=== PATIENT | female | born 1995 | race Caucasian/White ===

== ENCOUNTER → 2021-03-25 00:19 | Outpatient (CLI) | payer OTHER, SELFPAY ==
[2021-03-25 20:23] LABS: SARS-CoV-2 RNA PCR Negative
[2021-03-26 23:31] LABS: Influenza A QL RT-PCR Negative (Negative); Influenza B QL RT-PCR Negative (Negative)
== END ==
PROVIDERS: PCP Internal Medicine; Visit Provider Internal Medicine
DX: R68.89 Other general symptoms and signs (principal); Z20.822 Contact with and (suspected) exposure to COVID-19
CPT/HCPCS: 87502; C9803; U0003; U0005

== ENCOUNTER 2021-03-25 10:07 | Emergency (ER) | payer OTHER, SELFPAY ==
--- NOTE | ~2021-03-25 | XR_ITS ---
XR chest 2V DATE: 03/25/2021 11:57 INDICATION: Cough for 2 weeks. Former smoker. TECHNIQUE: AP and lateral views COMPARISON: Two-view chest on April 16, 2004 FINDINGS: Normal heart size. No hilar or mediastinal enlargement. The lungs are normally inflated and clear of infiltrate or consolidation. No pleural effusion or pulmonary vascular congestion or pneumo thorax. IMPRESSION: Negative Reviewed, dictated and finalized at location A. CTURAL STEEL ERECTION SUPERVISOR IMPRESSION: Negative
[2021-03-25 10:26] VITALS: BP 116/83; PULSE 93; RESP 18; TEMP 36.9; O2SAT 97
--- NOTE | 2021-03-25 11:56 | ED.GENADULT ---
HPI - General Adult General Chief complaint: Upper Respiratory Infection Stated complaint: facial swelling Time Seen by Provider: 03/25/21 10:24 Source: patient Mode of arrival: ambulatory Limitations: no limitations History of Present Illness HPI narrative: Patient presents for evaluation of sinus symptoms for the last 2 to 3 weeks. She reports sinus congestion, green drainage, productive cough of green sputum, sore throat, bilateral otalgia without hearing loss or tinnitus. No fever, chills, nausea, vomiting, chest pain or SOB. No personal hx of COVID. She opted not to receive COVID vaccination. No recent sick contacts to her knowledge. She went to a [employer] drive thru earlier today but has not received her results yet. She is not taking any medications to assist with her symptoms. She smokes marijuana but does not smoke tobacco. No additional complaints or concerns. Related Data Home Medications Medication Instructions Recorded Confirmed ergocalciferol (vitamin D2) 1,250 1,250 mcg PO WEEKLY 10/27/20 10/27/20 mcg (50,000 unit) capsule fluoxetine 20 mg capsule 20 mg PO DAILY 10/27/20 10/27/20 prazosin 1 mg capsule 1 mg PO QHS 10/27/20 10/27/20 trazodone 100 mg tablet 100 mg PO QHS PRN 10/27/20 10/27/20 trazodone 50 mg tablet 50 mg PO QHS PRN 10/27/20 10/27/20 Allergies Allergy/AdvReac Type Severity Reaction Status Date / Time diphtheria,pertussis Allergy Unknown Unknown Verified 10/27/20 08:08 (acellular),te duloxetine Allergy Unknown Unknown Verified 10/27/20 08:08 [facility] Past Medical History Medical History (Updated 03/25/21 @ 13:06 by Wyatt Baird, SABRINA, BC) History of traumatic brain injury Surgical History Surgical History History of tonsillectomy History of tympanostomy tube placement Hx of craniotomy 2020 Family History Family History Father Hypertension Mother Hypertension Patient's mother is in good health Family history of malignant neoplasm of breast in first degree relative Sibling Patient's brother is in good health Social History Social History Smoking packs per day: 1 Smoking cigarettes per day: 20.0 Years smoked: 5 Smoking pack-years: 5.00 Smoking status: Former smoker Second hand tobacco smoke exposure: Yes Alcohol intake: current Alcohol use details: social Substance use: current Substance use type: marijuana Living arrangements: with family Gender identity (if verbalized by the patient): Female Spiritual care concerns: No Exam Narrative: GENERAL: Well-appearing, well-nourished, and in no acute distress. HEAD: Normocephalic, atraumatic. EYES: PERRLA and EOMI. ENT: Nares clear, no rhinorrhea or epistaxis. Mucous membranes moist. Oropharynx without tonsillar hypertrophy exudate or other lesions. Bilateral TMs pearly jerome nonbulging NECK: Supple. No adenopathy or masses. No carotid bruits or JVD CHEST: Clear to auscultation. No respiratory distress. No wheezes rales or rhonchi HEART: Regular rate and rhythm. No murmur heard. Normal peripheral pulses. ABDOMEN: Soft, nontender, nondistended, normal active bowel sounds. EXTREMITIES: Normal range of motion. No edema. SKIN: There is erythema overlying right maxillary region. Warm, dry, no rash. NEURO: No focal deficits. Alert and oriented x3. PSYCH: Normal mood and affect. Course Course Emergency Course: This is a 26-year-old female who presented with complaints of sinus congestion and mucopurulent discharge with associated cough for the last 2 to 3 weeks. Strep, influenza, COVID were all negative. Chest x-ray was negative. Based on duration of time for which she has experienced symptoms, she meets criteria for ABRS. We will treat with doxycycline and Mucinex DM. She is not hypoxic. She was advised to f
[2021-03-25 12:48] LABS: EDCOVIDSCREEN Negative (Negative)
== END 2021-03-25 13:34 | disposition home or self-care (01) ==
PROVIDERS: Emergency Provider Nurse Practitioner; PCP Internal Medicine
DX: J01.90 Acute sinusitis, unspecified (principal); B96.89 Other specified bacterial agents as the cause of diseases classified elsewhere; Z20.822 Contact with and (suspected) exposure to COVID-19; Z87.820 Personal history of traumatic brain injury; Z87.891 Personal history of nicotine dependence
CPT/HCPCS: 36415; 71046; 87081; 87426; 87502; 87804; 87880; 99283; C9803; U0003; U0005

== ENCOUNTER 2021-03-29 11:00 | Outpatient (RCR) | payer OTHER, SELFPAY ==
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
--- NOTE | 2021-02-16 10:33 | PCPTNOTE ---
Patient's father called & cancelled scheduled appointment this date due to being unable to make it.
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
--- NOTE | 2021-03-09 09:39 | PCOTNOTE ---
Patient did not show up for scheduled appointment this date.
--- NOTE | 2021-03-15 08:48 | PCOTNOTE ---
Patient called & cancelled scheduled appointment this date due to not feeling well.
--- NOTE | 2021-03-29 11:12 | OTOPEVAL ---
OCCUPATIONAL THERAPY RE-EVALUATION AND DISCHARGE SUMMARY 03/29/21 Erica presents for OT re-evaluation following 5 weeks of therapy. Progress noted in functional strength of the shoulder and certified legal secretary specialist as well as improved ROM in the elbow, forearm, and wrist. She is now using the left hand to hold objects while opening them with the right hand. She is currently independent with HEP for all joints of the left UE. At this time she has been unable to be progressed to more resistive exercises due to weakness - plan to have her continue her active ROM HEP, moving against gravity. Recommended to the patient and her dad that she completes UE exercises daily with the goal of returning to have her HEP progressed after she recovers from her knee surgery that is scheduled for next week. Thank you for referring Erica Waterman to [facility].? Please review, sign, date and return this D/C Note PEGGY. I agree with and certify that the following plan of care is medically necessary. Referring Physician Date Referring Provider: Nayana Adams, ARTUROC *OT Outpatient Evaluation Start: 02/22/21 09:38 Diagnosis TBI Onset 03/23 Subjective Information Erica reports that her Query Text:As Reported By Patient/ shoulder pain continues to be Family pretty severe, but does note that her shoulder has gotten stronger and she has more movement. Erica and dad report that she has been using her left hand to hold water bottles while she opens them with the right hand. Dad states he has not been having to help her open drinks and containers. Pain Assessment Timing of Pain Assessment Timing of Pain Assessment Assessment Pain Scale Pain Scale Used Numeric (1 - 10) Self Report Pain Assessment Left Arm(s) Reported Pain Level 6 Lowest Pain Intensity 4 Greatest Pain Intensity 8 Pain Score Pain Score 6: Self Report Interventions Used Interventions Used By Clinicians Exercise,Rest Upper Extremity Range of Motion Scapular/ Shoulder Range of Motion Left Scapular/Shoulder Range of Motion Shoulder continues to be Comments subluxed 1 finger width. Passive flexion and abduction is WFL. Very minimal and inconsistent active motion. With cues to attend to the arm she has some active trace motion. Elbow/Forearm Range of Motion Left Elbow/Forearm Range of Motion Comments Active flexion is WNL Active extension improved to -30* Pronation improved to normal limits
--- NOTE | 2021-04-04 11:39 | PCPTNOTE ---
Patient did not show up for scheduled appointment this date. Called & she stated she wasn't able to get a ride.
--- NOTE | 2021-04-24 08:35 | PCPTNOTE ---
Admitting Provider: Attending Provider: Nayana Adams, FURNACE CLERK-C Patient:Erica Waterman Date of :1995 Physical Therapy Discharge Note Patient has not returned for any further treatments since 03/29/2021, therefore she will be discharged at this time. She was scheduled for knee surgery 04/11/21. Patient?s initial visit was on 02/02/2021 she had a total of 13 visits. The goals have been partially met at this time. Thank you for referring this patient to [facility]. Please review, sign, date and return this discharge summary PEGGY. I have been updated about the patient's current status and I agree with discharge from the above service at this time. Referring Physician Date
== END 2021-04-24 11:34 | disposition home or self-care (01) ==
LOC: ANHPT 11:00
PROVIDERS: PCP Internal Medicine; Visit Provider Nurse Practitioner
DX: M79.10 Myalgia, unspecified site (principal)
CPT/HCPCS: 97014; 97110; 97112; 97163; 97166; 97530; 97535; 97542; G0283

== ENCOUNTER 2021-11-01 13:15 | Outpatient (RCR) | payer OTHER, SELFPAY ==
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
== END 2021-11-23 16:01 | disposition home or self-care (01) ==
LOC: ANHGOSHPT 13:15
PROVIDERS: PCP Internal Medicine; Visit Provider Internal Medicine
DX: M79.10 Myalgia, unspecified site (principal)
CPT/HCPCS: 97110; 97112; 97163; 97530

== ENCOUNTER 2022-02-05 00:26 | Day surgery (SDC) | payer OTHER, SELFPAY ==
[2022-01-23 13:11] VITALS: BMI 25.8
--- NOTE | 2022-01-23 13:22 | PC.NURSE ---
Report to the Outpatient Waiting Room, entrance under the green pavilion located off [facility], at time _1pm_ on date _[id number]_. Planned Procedure Time: _3pm_. Time changes happen often and if your time is changed the preop area will call you the afternoon before. - You and your visitor will be asked to self-screen and do not enter if you have any COVID symptoms. - Only one visitor is requested with a max of two and NO children visitors are allowed at this time. - The patient visitor may be requested to leave or wait in car when not with patient due to distancing restrictions. - A mask is optional within the hospital. Patients may have clear liquids (water, carbonated beverages, clear teas, apple juice) until 3 hours prior to surgery with a maximum of 20 ounces. - No food from midnight until time of surgery Take the following medications with a SIP of water the morning of surgery: __Buspirone, Fluoxetine, Gabapentin, Dantrolene and Lamotrigine.____ Medications to discontinue per physician ___None Date to take last dose Please no make-up, nail telugu, hairspray, perfume, deodorant, or body powder the day of surgery. No jewelry (including any body piercings) or valuables the day of surgery, leave them at home. Please take a shower or bath the night before, or the morning of, surgery with an antibacterial soap. Wear comfortable, loose fitting clothing. - Jewelry must be removed prior to entering the operating room. Rings and piercings that are not removed may be cut off. - The hospital will not accept responsibility for valuables. - Please leave all valuables, including medications, at home the day of surgery. If you are going home after surgery, a licensed telephone directory distributor driver must drive you home. - NO public transportation without another adult if you receive anesthesia. - We recommend that an adult stay with you for 24 hours following discharge. - We also recommend that you do not drive, make important decision, drink alcoholic beverages, or take any drugs that were not prescribed by your health care provider for at least 24 hours after your discharge time. Follow any additional instructions given to you from your surgeon. If you or anyone in your household have experienced Covid symptoms in the past week, please notify your surgeon or the nurse liaison at the phone number below for possible testing. Telephone instructions given to __Patient and her dad___and asked if any additional questions and then verbalized understanding. Patient advised to call surgeon office or pre surgery nurse liaison [phone] if any additional questions.
[2022-02-05] MEDS: LACTATED RINGERS 1,000 ML 30 ML IV CONT (14:00)
--- NOTE | 2022-02-05 14:03 | WPDANESEPPF ---
Anes - Initial Pre Proc Eval Procedure: Operation Date: 02/05/22 15:00 Proposed Procedures p Excision Left Axiilary Hidradenitis - Tristian Page DO Date/Time: 02/05/22 14:03 Surgeon: Tristian Page DO Pre Op Diagnosis: left axillary hidradenitis Patient Data Age: 27 Gender: F Height: 1.63 m Weight: 68.2 kg Allergies Allergy/AdvReac Type Severity Reaction Status Date / Time diphtheria,pertussis Allergy Unknown Hives Verified 01/23/22 13:07 (acellular),te duloxetine [From Cymbalta] AdvReac Other Verified 01/23/22 13:07 Home Medications Medication Instructions Recorded Confirmed Type prazosin 1 mg capsule 1 mg PO QHS 10/27/20 01/23/22 History trazodone 100 mg tablet 300 mg PO QHS 10/27/20 01/23/22 History gabapentin 300 mg capsule 300 mg PO TID #270 caps 05/26/21 01/23/22 Rx fluoxetine 20 mg capsule 60 mg PO DAILY 08/10/21 01/23/22 History naproxen sodium 550 mg tablet 550 mg PO Q12H PRN pain #60 tabs 08/10/21 01/23/22 Rx lamotrigine 25 mg tablet 75 mg PO DAILY 08/22/21 01/23/22 History buspirone 15 mg tablet 15 mg PO BID 08/29/21 01/23/22 History hydroxyzine HCl 25 mg tablet 25 mg PO TID PRN itching #30 tabs 10/30/21 01/23/22 Rx sumatriptan succinate 50 mg tablet See Rx Instructions PO .COMPLEX 11/03/21 01/23/22 Rx (Imitrex) #30 tabs dantrolene 25 mg capsule 25 mg PO TID #90 caps 12/12/21 01/23/22 Rx ondansetron 4 mg disintegrating 4 mg PO Q8H PRN nausea and 01/08/22 01/23/22 Rx tablet vomiting #45 tabs medroxyprogesterone 150 mg/mL 150 mg IM [id number] #1 mL 01/19/22 01/23/22 Rx intramuscular syringe (Depo-Provera) Patient hx anesthesia problems: none Family hx anesthesia problems: none Results Review: All pre-operative results and documents have been reviewed as part of the pre-operative evaluation. [facility] Past Medical History Medical History Abnormal Pap smear of cervix 01/27/2018 Hgsil +hpv; 03/28/2020 Hgsil +hpv Anxiety Depression History of blood transfusion History of traumatic brain injury HPV in female Initiation of Depo Provera Irregular menstrual cycle Seizure Surgical History Surgical History H/O LEEP 05/05/20 History of colposcopy with cervical biopsy 03/12/18 LGSIL SAMANTHA I History of incision and drainage L and R Axillary abscess I&D on 10/10/21 History of surgery on lower extremity April 06, 2021 History of tonsillectomy History of tympanostomy tube placement x6 Hx of craniotomy 2019 Total knee replacement status Family History Family History Father Hypertension Mother Hypertension Patient's mother is in good health Family history of malignant neoplasm of breast in first degree relative Sibling Patient's brother is in good health Grandparent Lung cancer maternal grandmother Other Cancer Diabetes mellitus Heart disease Social History Social History Smoking packs per day: 1 Smoking cigarettes per day: 20.0 Years smoked: 17 Smoking pack-years: 17.00 Smoking status: Former smoker Tobacco type: cigarettes Second hand tobacco smoke exposure: Yes Alcohol intake: never Alcohol use details: social every once in a while Substance use: current Substance use type: marijuana Other substance usage details: daily for pain and anxiety. Living arrangements: with family Gender identity (if verbalized by the patient): Female Spiritual care concerns: No Anes - Eval Final PreProcedure Day of Procedure 02/05/22 14:03 Patient weight: overweight Heart: regular rate and rhythm Lungs: decreased breath sounds Airway: Mallampati scale class III Neurological: other (alert) Last oral intake: >/= 8 hours ASA classification: III Emergent: no Anesthetic plan: proceed Anest
--- NOTE | 2022-02-05 14:03 | WPDHPUPDATE1 ---
History and Physical Update Update Date/Time: 02/05/22 14:03 History and Physical has been reviewed, including an updated exam of the patient. There are NO changes in the patient's condition. Risks, benefits, and alternatives have been discussed and questions answered. Patient agrees to proceed with procedure.
[2022-02-05 14:11] VITALS: BP 106/73; PULSE 83; RESP 14; TEMP 36.4; O2SAT 97
[2022-02-05] MEDS: fentaNYL CITRATE INJ (*CRX) 100 MCG/2 ML VIAL 50 MCG IV PUSH (14:15)
[2022-02-05] MEDS: ceFAZolin 2 GM/D5W 50 ML 2 GM/50 ML BAG IVPB (14:26)
[2022-02-05] MEDS: LIDO 1%/EPINEPHRINE/PF 1:200,000 30 ML VIAL 20 ML XX (14:43)
[2022-02-05] MEDS: BACITRACIN OINTMENT 15 GM TUBE 1 APPLIC TOPICAL (15:06)
[2022-02-05 15:15] VITALS: BP 120/94; PULSE 93; RESP 15; O2SAT 95
--- NOTE | 2022-02-05 15:19 | P.OP_ITS ---
Procedure Note - Detailed Date of Procedure 02/05/22 Pre-op Diagnosis left axillary hidradenitis Post-op Diagnosis Same Procedure Performed Excision of left axillary hidradenitis with simple repair Surgeon Tristian Page, DO Anesthesia MAC and Local (1% lidocaine with epinephrine) Indications This is a 27-year-old woman who presented with recurrent left axillary skin infections. Over the past several months she has had multiple infections requiring either incision and drainage or oral antibiotics. She has several sinus tracts along the inner part of the left axilla that continued to become reinfected. Discussions were made with the patient about treatment options and decision was made to proceed with excision of left axillary hidradenitis. Findings Excision of left axillary hidradenitis was performed. There were multiple sinus tracts along the left axilla and there was some chronic induration. The affected area measured about 11 cm long by 3 cm wide. Along the more posterior part of the area there did appear to be some purulence fluid and recurrent abscess. A wide enough incision was made around this area and the skin and underlying subcutaneous tissue was excised completely and sent to the lab for pathology. The wound was then irrigated with sterile saline and closed using 3- 0 nylon vertical mattress interrupted sutures. Description of Procedure Procedure as well as risks, benefits, and alternatives were discussed with the patient. Written consent was obtained and placed in chart prior to procedure. Patient was brought back to surgical suite. She was placed in supine position on the operating table. Time-out was done to confirm patient and procedure. IV sedation was then administered by the anesthesia department. Her left axillary region was prepped and draped in sterile fashion using Betadine prep. 1% lidocaine with epinephrine was infiltrated locally around the affected region. An 11 cm x 3 cm elliptical incision was then made using a 15 blade scalpel. Electrocautery was then used for hemostasis and for dissection of the skin free from the subcutaneous tissue. The skin and involved subcutaneous tissue was completely excised and sent to the lab for pathology. There was some purulence drainage from the more posterior portion of the involved skin. The wound bed was irrigated with sterile saline. No other bleeding or abnormalities were noted. The skin edges were then undermined slightly using electrocautery to allow for adequate approximation of the skin without tension. The skin edges were then reapproximated using 3-0 nylon vertical mattress interrupted sutures. Bacitracin ointment was then applied followed by 4 x 4 gauze and Medipore tape. Patient was then awakened from anesthesia and transferred to recovery. Estimated Blood Loss 10 Pathology Yes (Left axillary hidradenitis) Complications No immediate complications Condition Stable Disposition Same day [facility] Billing Surgery - Charge Forward: Surgery Billing
[2022-02-05 15:45] VITALS: BP 116/64; PULSE 76; RESP 15; O2SAT 96
[2022-02-05 16:15] VITALS: BP 112/67; PULSE 76; RESP 15
[2022-02-05] MEDS: oxyCODONE HCL (*CRX) 5 MG TAB IR PO (16:17)
[2022-02-05 16:30] VITALS: BP 114/79; PULSE 80; RESP 16
== END 2022-02-05 16:40 | disposition home or self-care (01) ==
PROVIDERS: PCP Internal Medicine; Visit Provider Surgery
PROC: (CPT 11450; principal; 2022-02-05 15:00)
DX: L73.2 Hidradenitis suppurativa (principal); F32.A Depression, unspecified; F41.9 Anxiety disorder, unspecified; Z87.891 Personal history of nicotine dependence; F12.90 Cannabis use, unspecified, uncomplicated
CPT/HCPCS: 11450; 88304; A9270; J0690; J2250; J2704; J3010; J7120

== ENCOUNTER 2022-04-05 14:15 | Outpatient (RCR) | payer OTHER, SELFPAY ==
[2022-01-18 10:32] VITALS: BP_SYST 90
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
--- NOTE | 2022-01-18 17:08 | PTOPEVAL1 ---
Assessment and note entered by Ilir Barrow, PT Evaluation Information Assessment Status Evaluation Diagnosis L foot drop Subjective Information Patient coming in for according to patient general strengthening, aquatic therapy, and to get back to walking. She has been doing exercises in a family member's pool and reports she has been making a lot of improvement that. Reported Pain Level Pain Score 5,5: Self Report Pain Score 0: Self Report Pain Score 6: Self Report Assessment PT Clinical Summary Erica is a 27 year old female coming into the clinic for general strengthening to help improve her functional mobility and hopefully get to walking. She demonstrates weakness in JULIAN LE with the L ankle being worse. The patient has a PMH of a TBI and has been doing therapy before. She has a caregiver that will help her with her exercises at home. I believe skilled physical therapy will benefit the patient get stronger in her legs which will improve her functional mobility with transfers, bed mobility, and potentially walking. Plan of Care Interventions Aquatic Therapy,Electrical Stimulation,Gait Training,Hot Pack/Cold Pack,Manual Therapy,Neuro Re-education,Patient/Caregiver Education,Therapeutic Activities,Therapeutic Exercise,Ultrasound, Wheelchair Training PT Services Indicated Yes Treatment Frequency and 1-2x/wk Duration These treatments will address the objective and functional deficits as defined above. The patient will be advanced safely and appropriately in order for the patient to progress towards his/her prior level of function. Additional exercises will be introduced and as well as a comprehensive home exercise program upon discharge, if needed, ?to ensure carryover of functional gains achieved in the clinic. This treatment plan has been reviewed and agreement upon by the patient.
--- NOTE | 2022-01-24 10:13 | PCPTNOTE ---
Patient called & cancelled scheduled appointment this date due to not having power.
--- NOTE | 2022-01-31 11:12 | PCPTNOTE ---
Patient called & cancelled scheduled appointment this date due to not feeling well.
[2022-02-15 13:01] VITALS: BP_SYST 90
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
--- NOTE | 2022-02-15 14:23 | PTOPPROG ---
Assessment and note entered by Gloria Simpson, PT Evaluation Information Assessment Status Progress Diagnosis L foot drop Subjective Information pt reports she has been doing her leg exercises at home; wants to continue therapy and get stronger, to be able to walk again. Assessment PT Clinical Summary Erica has received 4 PT sessions. She is also receiving OT treatment. She has had surgical removal of L axillary nodes/cyst and pain in L shoulder limited use of L arm and pain in R knee. With the reevaluation, she requires max assist for supine> sit transfer, sit>stand transfer and standing with max assist in parallel bars. She has weakness of R & L hip and knee, with tone in L LE. Skilled PT services are to continue to increase her mobility, transfer skills and LE strength, to improve her mobility and decrease care and assist required by her dad and caregivers. Plan of Care Interventions Gait Training,Neuro Re-education,Patient/Caregiver Education,Therapeutic Activities,Therapeutic Exercise,Wheelchair Training PT Services Indicated Yes Treatment Frequency and 1-2x/wk for 5 weeks Duration These treatments will address the objective and functional deficits as defined above. The patient will be advanced safely and appropriately in order for the patient to progress towards his/her prior level of function. Additional exercises will be introduced and as well as a comprehensive home exercise program upon discharge, if needed, ?to ensure carryover of functional gains achieved in the clinic. This treatment plan has been reviewed and agreement upon by the patient.
[2022-03-22 14:15] VITALS: BP_SYST 90
--- NOTE | 2022-03-22 15:18 | OTOPPROG ---
Assessment and note entered by German Cortez, SANDIP/Jose Alberto, CHT Evaluation Information Assessment Status Progress Diagnosis TBI, 2019 Subjective Information Patient reports she has been able to open her own bottles of water and cut up her own food. She reports constant left shoulder pain, reporting 6-7 /10 on a regular basis. She states the subluxation feels worse and it feels like her arm is falling out of the socket . Assessment OT Clinical Summary Patient presents for OT re-evaluation. Progress noted in gross elbow and wrist strength, which has facilitated improved functional arm use for ADL tasks such as holding and opening a water bottle as well as utensils to cut food. Continued skilled OT indicated to progress her HEP, continued strengthening and functional therapeutic exercises , and shoulder positioning education to reduce pain. Plan of Care Interventions Therapeutic Exercise,Manual Therapy,Neuro Re- education,Therapeutic Activities,Hot Pack/Cold Pack,Electrical Stimulation,Self-Care/Home Management OT Services Indicated Yes Treatment Frequency and 1x/week for 5 weeks Duration These treatments will address the objective and functional deficits as defined above. The patient will be advanced safely and appropriately in order for the patient to progress towards his/her prior level of function. Additional exercises will be introduced and as well as a comprehensive home exercise program upon discharge, if needed, ?to ensure carryover of functional gains achieved in the clinic. This treatment plan has been reviewed and agreement upon by the patient.
--- NOTE | 2022-03-22 15:45 | PTOPPROG ---
Assessment and note entered by Gloria Simpson, PT Evaluation Information Assessment Status Progress Diagnosis L foot drop Subjective Information Erica reports: feels like legs are stronger and holding her better when she stands; has been doing her leg exercises; Assessment PT Clinical Summary Erica has received 11 PT sessions. Compared to the last reevaluation: improved w/c mobility by 50'; slight increase R LE strength; goals were partially achieved. Continue PT to progress HEP, indep with mobility to decrease level of care required; work with caregiver on HEP and education. Plan of Care Interventions Gait Training,Neuro Re-education,Patient/Caregiver Educati,Therapeutic Activities,Therapeutic Exercise,Wheelchair Training PT Services Indicated Yes Treatment Frequency and 1x/wk for 5 weeks Duration These treatments will address the objective and functional deficits as defined above. The patient will be advanced safely and appropriately in order for the patient to progress towards his/her prior level of function. Additional exercises will be introduced and as well as a comprehensive home exercise program upon discharge, if needed, ?to ensure carryover of functional gains achieved in the clinic. This treatment plan has been reviewed and agreement upon by the patient.
--- NOTE | 2022-04-10 11:53 | PCPTNOTE ---
This treatment is being continued on visit number [id number] Please see documentation on both accounts to view progress. Completed interventions, outcomes, and problems have been marked as Inactive to facilitate the copying of the Care plan routine for recurring accounts.
--- NOTE | 2022-04-10 14:42 | PCOTNOTE ---
This treatment is being continued on visit number [id number]. Please see documentation on both accounts to view progress. Completed interventions, outcomes, and problems have been marked as Inactive to facilitate the copying of the Care plan routine for recurring accounts.
== END 2022-04-10 08:22 | disposition home or self-care (01) ==
LOC: ANHOT 14:15
PROVIDERS: PCP Internal Medicine
DX: Z47.89 Encounter for other orthopedic aftercare (principal); S82.141D Displaced bicondylar fracture of right tibia, subsequent encounter for closed fracture with routine healing; M21.372 Foot drop, left foot; R26.89 Other abnormalities of gait and mobility; G90.09 Other idiopathic peripheral autonomic neuropathy; R35.0 Frequency of micturition; F32.A Depression, unspecified; F41.9 Anxiety disorder, unspecified
CPT/HCPCS: 92523; 97014; 97110; 97112; 97140; 97161; 97165; 97530; 97535; G0283

== ENCOUNTER 2022-04-22 15:42 | Emergency (ER) | payer OTHER, SELFPAY ==
[2022-04-22 15:55] VITALS: BP 141/79; PULSE 95; RESP 16; TEMP 36.3; O2SAT 97
[2022-04-22] MEDS: PROMETHAZINE HCL 25 MG/ML AMPUL IM (16:13)
--- NOTE | 2022-04-22 16:26 | ED.NAVMDI ---
HPI - Nausea/Vomiting/Diarrhea General Chief complaint: Skin/Abscess/Foreign Body Stated complaint: bump/irritation spot on nose,nausea Time Seen by Provider: 04/22/22 15:56 Source: patient, family (father) and old records reviewed Mode of arrival: wheelchair Limitations: no limitations History of Present Illness HPI Narrative: Father presents patient today complaining of abscess to the left nose that has been present for the past week and worsening since onset. Pain extends to the left cheek, under the eye, and to the upper teeth. Patient is also complaining of nausea for the past 2-3 days and has been taking Zofran without relief. She started vomiting after arrival at [facility] and has been unable to stop. In addition she is complaining of dizziness and sweats. Denies abdominal pain, diarrhea, fever. Patient finished a course of Bactrim on 03/12/2022 for left axillary hidradenitis. Related Data Home Medications Medication Instructions Recorded Confirmed prazosin 1 mg capsule 1 mg PO QHS 10/27/20 04/22/22 fluoxetine 20 mg capsule 60 mg PO DAILY 08/10/21 04/22/22 lamotrigine 25 mg tablet 75 mg PO DAILY 08/22/21 04/22/22 buspirone 15 mg tablet 15 mg PO BID 08/29/21 04/22/22 quetiapine 50 mg tablet 50 mg PO HS 04/22/22 04/22/22 Allergies Allergy/AdvReac Type Severity Reaction Status Date / Time diphtheria,pertussis Allergy Unknown Hives Verified 04/22/22 15:51 (acellular),te duloxetine [From Cymbalta] AdvReac Other Verified 04/22/22 15:51 Review of Systems Review of Systems: CONSTITUTIONAL: Denies body aches, fever, chills. + sweats EYES: Denies visual changes, redness, or discharge. ENT: Denies rhinorrhea, congestion, sore throat, or otalgia. CARDIOVASCULAR: Denies chest pain, palpitations, or edema. RESPIRATORY: Denies cough or dyspnea. GASTROINTESTINAL: Denies abdominal pain, or diarrhea.+ nausea, vomiting GENITOURINARY: Denies dysuria or hematuria. SKIN: Denies rash, itching, or wounds.+ nose abscess MUSCULOSKELETAL: Denies back pain, joint pain, or myalgia. NEUROLOGIC: Denies headache, numbness, tingling, or weakness.+ dizziness PSYCH: Denies depression or anxiety. [facility] Past Medical History Medical History Abnormal Pap smear of cervix 01/27/2018 Hgsil +hpv; 03/28/2020 Hgsil +hpv Anxiety Depression History of blood transfusion History of traumatic brain injury HPV in female Initiation of Depo Provera Irregular menstrual cycle Seizure Surgical History Surgical History H/O LEEP 05/05/20 Hidradenitis axillaris exc L axillary hidradenitis 02/02/22 History of colposcopy with cervical biopsy 03/12/18 LGSIL SAMANTHA I History of incision and drainage L and R Axillary abscess I&D on 10/10/21 History of surgery on lower extremity April 06, 2021 History of tonsillectomy History of tympanostomy tube placement x6 Hx of craniotomy 2019 Total knee replacement status Family History Family History Father Hypertension Mother Hypertension Patient's mother is in good health Family history of malignant neoplasm of breast in first degree relative Sibling Patient's brother is in good health Grandparent Lung cancer maternal grandmother Other Cancer Diabetes mellitus Heart disease Social History Social History Smoking packs per day: 1 Smoking cigarettes per day: 20.0 Years smoked: 17 Smoking pack-years: 17.00 Smoking status: Former smoker Tobacco type: cigarettes Second hand tobacco smoke exposure: Yes Alcohol intake: never Alcohol use details: social every once in a while Substance use: current Substance use type: marijuana Other substance usage details: daily for pain and anxiety. Living arrangements: with family
== END 2022-04-22 16:26 | disposition short-term general hospital (02) ==
PROVIDERS: Emergency Provider Nurse Practitioner; PCP Internal Medicine
DX: L02.01 Cutaneous abscess of face (principal); J34.0 Abscess, furuncle and carbuncle of nose; Z87.891 Personal history of nicotine dependence; G40.909 Epilepsy, unspecified, not intractable, without status epilepticus; Z87.820 Personal history of traumatic brain injury; F41.9 Anxiety disorder, unspecified; F32.A Depression, unspecified
CPT/HCPCS: 36415; 80053; 83690; 85025; 85055; 96372; 99213; G0463; J2550

== ENCOUNTER 2022-04-22 16:56 | Emergency (ER) | payer OTHER, SELFPAY ==
[2022-04-22 17:19] VITALS: BP 123/82; PULSE 88; RESP 18; TEMP 36.6; O2SAT 98
[2022-04-22 18:05] LABS: Hematocrit 43.9 % (37.0-47.0); Hemoglobin 14.6 g/dL (12.0-15.0); Immature Platelet Fraction Pct 4.8 % (0.9-11.2); Mean Corpuscular HGB Conc 33.3 g/dl (32-36); Mean Corpuscular Hemoglobin 30.9 pg (26-34); Mean Corpuscular Volume 92.8 fl (80-100); Mean Platelet Volume 10.2 fl (7.4-10.4); Platelet Count Result 247 k/mm3 (150-375); Red Blood Count 4.73 M/mm3 (4.2-5.4); Red Cell Distribution Width 12.9 % (11.5-14.5)
[2022-04-22 18:13] LABS: Alanine Aminotransferase 19 U/L (6-35); Albumin Level 4.7 g/dL (3.5-5.1); Alkaline Phosphatase 98 U/L (38-126); Anion Gap 11 mmol/L (8-16); Aspartate Amino Transferase 24 U/L (14-36); Bilirubin,Total 0.5 mg/dL (0.2-1.3); Blood Urea Nitrogen 8 mg/dL (7-17); Calcium 8.6 mg/dL (8.4-10.2); Carbon Dioxide 19 mmol/L (22-30); Chloride 105 mmol/L (98-107); Estimated CRCL calculation 123 ml/min; Estimated Glomerular Filt Rate > 60; Glucose 143 mg/dL (65-110); Lipase 34 U/L (23-300); Potassium 4.5 mmol/L (3.4-5.0); Sodium 135 mmol/L (137-145)
[2022-04-22 18:39] LABS: Band Neutrophils Percent 5 % (0-6); Monocytes Percent Manual 6 % (3-9); Neutrophils Percent Manual 82 % (46-73); Platelet Estimate Adequate (Adequate); Total Cells Counted 100
[2022-04-22 18:40] LABS: Schistocytes None Seen (NORMAL)
--- NOTE | 2022-04-22 20:22 | PC.NURSE ---
pt left with family d/t wait time
== END 2022-04-22 20:23 | disposition left against medical advice (07) ==
PROVIDERS: Emergency Provider Emergency Medicine; PCP Internal Medicine
DX: R11.2 Nausea with vomiting, unspecified (principal)
CPT/HCPCS: 36415; 80053; 83690; 85025; 85055; 99199

== ENCOUNTER 2022-04-25 10:30 | Outpatient (RCR) | payer OTHER, SELFPAY ==
[2022-04-10 08:22] VITALS: BP_SYST 90
--- NOTE | 2022-04-10 11:38 | PCPTNOTE ---
This treatment is being continued on visit number [id number] . Please see documentation on both accounts to view progress. Completed interventions, outcomes, and problems have been marked as Inactive to facilitate the copying of the Care plan routine for recurring accounts.
--- NOTE | 2022-04-25 10:25 | PTOPDC ---
Assessment and note entered by Gloria Simpson, PT Evaluation Information Assessment Status Discharge Diagnosis L foot drop Subjective Information Erica and her caregiver Katiuska report: things are going OK at home; no concerns about leg exercises at home--doing sitting and lying down exercises; no falls at home; Reported Pain Level Pain Score Self Report Additional Pain Score Comments 09/10 R knee pain; more pain in shoulder past few days; 11/11 L shoulder pain Assessment PT Clinical Summary Erica has received a total of 15 PT sessions. Compared to the last reevaluation, LE strength, w/c propulsion, required assist for sit/stand, w/c< > mat transfer and standing are about the same. She remains impulsive with her motions and activity, has tone in L LE. Her dad and caregiver are assisting her with transfers, HEP for leg strengthening and standing. They did not have any concerns or questions about assisting her. The goals were not met. Discharge PT services. Plan of Care PT Services Indicated No
--- NOTE | 2022-04-25 11:24 | OTOPDC ---
Assessment and note entered by German Cortez OTR/Jose Alberto, CHT Evaluation Information Assessment Status Discharge Assessment Status Discharge Diagnosis TBI2019 Subjective Information Erica has participated in 14 treatment sessions from 01/18/22 through 04/25/22. Sessions have been focused on improving functional strength of the left UE, treating shoulder pain secondary to subluxation/weakness, UE positioning for comfort, and family/caregiver education. She reports her collar fuser feels stronger. She reports constant left shoulder pain, reporting 8/10 on a regular basis. She states the subluxation feels worse and it feels like her arm is falling out of the socket . No changes in shoulder discomfort. Her caregiver is here with her today to help review her HEP. Reported Pain Level Pain Score 8: Self Report Additional Pain Score Comments Reports constant shoulder pain due to subluxation. Tries to tape the shoulder and keep it supported to help with this. Sees a chiropractor for pain also. days; Assessment OT Clinical Summary Patient presents for OT re-assessment. At this time the patient has reached a progress plateau with functional ROM and strength of the left UE. She and her caregiver demonstrate good understanding of ROM and strengthening HEP. Discussed how to progress these exercises as tolerated. Patient independent with left UE positioning for comfort to reduce shoulder pain. No further skilled OT indicated at this time. Plan of Care OT Services Indicated No
== END 2022-04-25 13:41 | disposition home or self-care (01) ==
LOC: ANHOT 10:30
PROVIDERS: PCP Internal Medicine
DX: Z47.89 Encounter for other orthopedic aftercare (principal); S82.141D Displaced bicondylar fracture of right tibia, subsequent encounter for closed fracture with routine healing; M21.372 Foot drop, left foot; R26.89 Other abnormalities of gait and mobility; G90.09 Other idiopathic peripheral autonomic neuropathy; R35.0 Frequency of micturition; F32.A Depression, unspecified; F41.9 Anxiety disorder, unspecified
CPT/HCPCS: 97110; 97112; 97530

== ENCOUNTER 2022-11-21 15:38 | Emergency (ER) | payer OTHER, SELFPAY ==
--- NOTE | ~2022-11-21 | XR_ITS ---
XR knee LT 3V DATE: 11/21/2022 16:06 INDICATION: Knee pain. No injury. TECHNIQUE: AP, crosstable lateral, sunrise views COMPARISON: None FINDINGS: There is osteopenia. There is mild to moderate loss of height at the medial compartment joint space. No fracture or disloc ation or joint effusion. No radiopaque intra-articular loose body or chondrocalcinosis. No periosteal reaction or bone destruction. IMPRESSION: Mild to moderate loss of height at medial compartment joint space Osteopenia Reviewed, dictated and finalized at location A.
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
[2022-11-21 15:49] VITALS: BP 104/81; PULSE 111; RESP 16; TEMP 36.2; O2SAT 100
== END 2022-11-21 16:27 | disposition home or self-care (01) ==
PROVIDERS: Emergency Provider Nurse Practitioner; PCP Family Medicine
DX: L30.9 Dermatitis, unspecified (principal); M85.862 Other specified disorders of bone density and structure, left lower leg; F17.210 Nicotine dependence, cigarettes, uncomplicated; F41.9 Anxiety disorder, unspecified; F32.A Depression, unspecified; G40.909 Epilepsy, unspecified, not intractable, without status epilepticus; Z86.73 Personal history of transient ischemic attack (TIA), and cerebral infarction without residual deficits
CPT/HCPCS: 73562; 99213; G0463

== ENCOUNTER 2022-11-27 14:49 | Outpatient (CLI) | payer OTHER, SELFPAY ==
--- NOTE | ~2022-11-27 | US_ITS ---
EXAMINATION: US venous doppler [facility] DATE: 11/27/2022 15:53 INDICATION: r/o DVT . TECHNIQUE: Grayscale images without and with compression and Doppler images of the left lower extremi ty veins were obtained. COMPARISON: None FINDINGS: The left common femoral vein, profunda (deep) femoral vein, femoral vein, popliteal vein, peroneal v ein, posterior tibial veins, gastrocnemius vein, and greater saphenous vein are patent. IMPRESSION: Patent left lower extremity veins. No evidence of deep venous thrombosis. Reviewed, dictated and finalized at location K.
== END 2022-11-27 14:50 | disposition home or self-care (01) ==
PROVIDERS: PCP Family Medicine; Visit Provider Nurse Practitioner Family
DX: M79.605 Pain in left leg (principal); M79.89 Other specified soft tissue disorders; R20.8 Other disturbances of skin sensation
CPT/HCPCS: 93971

== ENCOUNTER 2023-03-05 00:47 | Day surgery (SDC) | payer OTHER, SELFPAY ==
[2023-02-26 12:12] VITALS: BMI 27.4
--- NOTE | 2023-03-01 12:23 | SUR.PREOP ---
Patient called regarding upcoming procedure. Reviewed preop instructions, appointment times, and procedure prep.
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
[2023-03-05 13:08] VITALS: BP 122/77; PULSE 101; RESP 18; TEMP 36.3; O2SAT 99; BMI 25.8
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
[2023-03-05] MEDS: LACTATED RINGERS 1,000 ML 150 ML IV CONT (13:43)
[2023-03-05 14:14] VITALS: BP 106/67; PULSE 99; RESP 29; O2SAT 93
[2023-03-05 14:24] VITALS: BP 113/81; PULSE 89; RESP 19; O2SAT 96
[2023-03-05 14:34] VITALS: BP 122/76; PULSE 91; RESP 23; O2SAT 97
== END 2023-03-05 14:50 | disposition home or self-care (01) ==
PROVIDERS: PCP Family Medicine; Visit Provider Internal Medicine Gastroenterology
PROC: 0DJ08ZZ Inspection of Upper Intestinal Tract, Via Natural or Artificial Opening Endoscopic (ICD-10-PCS; CPT 43235; principal; 2023-03-05 14:00)
DX: K21.9 Gastro-esophageal reflux disease without esophagitis (principal); G40.909 Epilepsy, unspecified, not intractable, without status epilepticus; F41.9 Anxiety disorder, unspecified; F32.A Depression, unspecified; Z87.820 Personal history of traumatic brain injury; F17.210 Nicotine dependence, cigarettes, uncomplicated; F12.90 Cannabis use, unspecified, uncomplicated; Z87.11 Personal history of peptic ulcer disease
CPT/HCPCS: 43239; 87081; 88305; J2704; J7120

== ENCOUNTER 2023-05-15 10:04 | Outpatient (CLI) | payer OTHER, SELFPAY ==
--- NOTE | ~2023-05-15 | XR_ITS ---
EXAMINATION: XR abdomen/kub 1V DATE: 05/15/2023 10:29 INDICATION: Constipation. Left abdominal pain. TECHNIQUE: A supine view of the abdomen on 2 radiographs was obtained. COMPARISON: CT abdomen and pelvis 03/11/2004 FINDINGS: There are no dilated loops of bowel. There is a moderate volume of stool in the colon. IMPRESSION: 1. Nonobstructive bowel gas pattern. Reviewed, dictated and finalized at location A.
== END 2023-05-15 10:05 | disposition home or self-care (01) ==
PROVIDERS: PCP Nurse Practitioner Family; Visit Provider Nurse Practitioner Family
DX: K59.00 Constipation, unspecified (principal)
CPT/HCPCS: 74018

== ENCOUNTER 2023-05-28 10:35 | Outpatient (CLI) | payer OTHER, SELFPAY ==
--- NOTE | ~2023-05-28 | US_ITS ---
US abdomen limited INDICATION: Abnormal levels of serum enzymes PROCEDURE: Realtime right upper abdominal ultrasound. COMPARISON: No prior studies for comparison. FINDINGS: The pancreas is normal without focal mass or pancreatic ductal dilation. Liver echotexture is normal without focal mass or intrahepatic biliary dilatation. There is normal directional flow i n the portal vein. The gallbladder is normal without stones, gallbladder wall thickening or pericholecystic fluid. Comm on bile duct measures 3.5 mm. No sonographic Azevedo's sign. IMPRESSION: 1: Normal limited abdominal ultrasound. Reviewed, dictated and finalized at location L.
== END 2023-05-28 10:36 | disposition home or self-care (01) ==
LOC: ANHIMG 10:36
PROVIDERS: PCP Nurse Practitioner Family; Visit Provider Nurse Practitioner Family
DX: R74.8 Abnormal levels of other serum enzymes (principal); R11.2 Nausea with vomiting, unspecified
CPT/HCPCS: 76705

== ENCOUNTER 2024-07-01 14:46 | Outpatient (CLI) | payer OTHER, SELFPAY ==
--- NOTE | ~2024-07-01 | MM_ITS ---
EXAMINATION: MM screening mammo BI HISTORY: Screening TECHNIQUE: Craniocaudal and mediolateral oblique 3-D tomosynthesis images were obtained and synthetic 2-D images were generated. CAD analysis was submitted and interpreted. COMPARISON: No prior mammogram is available for comparison at this institution. BREAST PARENCHYMAL COMPOSITION: Not dense: There are scattered areas of fibroglandular density. FINDINGS: There are focal asymmetries in the upper outer quadrant of the right breast, posterior thir d. There is a dense lymph node overlying the right axilla. There is no suspicious mass, calcification or architectural distortion in the left breast to suggest malignancy. IMPRESSION: 1. Right breast asymmetries. 2. Additional mammographic views and possible breast ultrasound are recommended. BI-RADS Category 0: Incomplete: Needs additional imaging evaluation. Reviewed, dictated and finalized at location A. IMPRESSION: 1. Right breast asymmetries. 2. Additional mammographic views and possible breast ultrasound are recommended . BI-RADS Category 0: Incomplete: Needs additional imaging evaluation.
--- OUTSIDE RECORDS SUMMARY | 2024-07-01 15:44 | XMS_ITS | Clinical Summary ---
Author Organization [facility] Address [facility] [place] [address] Care Team Providers Care Automobile Assembler Name Role Phone Ho Khoury MD Primary Care Provider [phone] Allergies Active Allergy Reactions Criticality Noted Date Comments Diphtheria Toxoid-Containing Vaccines Anaphylaxis High 04/12/2020 Duloxetine Other (see comment) 11/28/2012 Reaction: major depression, manic attac, Reaction: major depression, manic attac, Medications [facility], [facility],Indications:Tr aumatic brain injury, with loss of consciousness greater than 24 hours with return to pre-existing conscious level, initial encounter ([facility]),Neuropath y,Unable to walk 1 Device by Other route as needed. 1 Device 05/24/19 Active WHEELCHAIR STANDARD/MANUAL, DME,Indications:Tr aumatic brain injury, with loss of consciousness greater than 24 hours with return to pre-existing conscious level, initial encounter ([facility]),Neuropath y,Unable to walk 1 Device by Does not apply route daily. With elevating leg rests 1 Device 05/24/19 Active HOSPITAL BED, DME,Indications:Tr aumatic brain injury, with loss of consciousness greater than 24 hours with return to pre-existing conscious level, initial encounter ([facility]),Movement disorder 1 Device by Does not apply route daily. 1 Device 05/24/19 Active varenicline (CHANTIX CONTINUING MONTH RUBINA) 1 MG tabletIndications: Smoker Take 1 tablet (1 mg total) by mouth 2 (two) times daily. This is the continuation pack to be started only after staring pack 60 tablet 1 06/04/19 21 Active ondansetron 4 MG disintegrating tabletIndications: Non-intractable vomiting with nausea, unspecified vomiting type Take 1 tablet (4 mg total) by mouth every 8 (eight) hours as needed for Nausea. 90 tablet 1 06/15/19 21 Active ALPRAZolam 0.5 MG tabletIndications: Adjustment reaction with anxiety and depression Take 1 tablet (0.5 mg total) by mouth nightly as needed for Sleep. 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 90 tablet 07/23/19 21 Active Incontinence Supply Disposable (INCONTINENCE BRIEF LARGE) MiscIndications:Tr aumatic brain injury, with loss of consciousness greater than 24 hours with return to pre-existing conscious level, initial encounter ([facility]) Use as directed. 200 each 1 08/13/19 21 Active gabapentin 300 MG capsuleIndications :Neuropathy,Adjust ment reaction with anxiety and depression Take 1 capsule (300 mg total) by mouth 3 (three) times a day. 90 capsule 10/06/19 21 Active meloxicam 15 MG tabletIndications: Closed intracapsular fracture of right femur, initial encounter ([facility]),Neuropath y Take 1 tablet (15 mg total) by mouth daily. 30 tablet 10/11/19 21 Active Active Problems Problem Noted Date Diagnosed Date TBI (traumatic brain injury) 04/12/2020 Insomnia due to medical condition 04/12/2020 Neuropathy 04/12/2020 Adjustment reaction with anxiety and depression 04/12/2020 Non-intractable vomiting wit h nausea, unspecified vomiting type 04/12/2020 Immunizations Immunization Administration Dates Next Due DTaP (Daptacel) 01/04/2001,06/10/1997,1996 ,1996 Dtp/Hib 1996 Hepatitis A (Generic) 10/21/2006 Hepatitis B 1996,1996,1996 Hib (Generic) 06/10/1997,1996,1996 MMR 01/04/2001,10/13/1997,07/13/1997 Opv 01/04/2001, 7,1996,1996,1996 ,1996 Varicella (Generic) 10/21/2006,07/13/1997 Family History Medical History Relation Comments Hypertension Father Relation Status Comments Father Social History Tobacco Use Types Packs/Day Years Used Date Smoking Tobacco: Every Day Smokeless Tobacco: Never Tobacco Cessation:Ready to Q uit: Not Asked; Counseling Given: Not Answered Alcohol Use Standard Drinks/Week Comments Yes 0 (1 standard drink = 0.6 oz pur e alcohol) PHQ-2 Answer Date Recorded PHQ-2 Score - If the patient scores above 3, please move on to questions 3-9 6 04/12/2020 Comments No Sex and Gender Information Value Date Recorded Sex Assigned at Not on file Legal Sex Female 6:23 PM CDT Gender Identity Not on file Sexual Orientation Not on file Last Filed Vital Signs Vital Sign Reading Time Taken Comments Blood Pressure 130/87 11/30/2022 7:30 PM CDT Pulse 82 11/30/2022 7:30 PM CDT Temperature 36.4 C (97.6 F) 11/30/2022 7:30 PM CDT Respiratory Rate 18 11/30/2022 7:30 PM CDT Oxygen Saturation 97% 11/30/2022 7:30 PM CDT Inhaled Oxygen Concentration - - Weight 73.5 kg (162 lb) 11/30/2022 4:34 PM CDT Height 162.6 cm (5' 4 ) 11/30/2022 4:34 PM CDT Body Mass Index 27.81 11/30/2022 4:34 PM CDT Plan of Treatment Health Maintenance Due Date Last Done Comments Cervical Cancer Screening Pap Smear (Age 21 to 29) Every 3 Years 1996 Cervical Cancer Screening 1996 Annual Physical 01/16/1999 Hepatitis C 01/16/2014 Pneumococcal Vaccine: Pediatrics (0 to 5 Years) and At-Risk Patients (6 to 49 Years) (2 of 2 - PCV) 03/19/2020 03/19/2019 COVID-19 Vaccine (2023- season) 2023 DTaP, Tdap and Td Vaccines (6 - Td or Tdap) 03/05/2029 03/05/2019, 01/04/2001, 06/10/1997, Additional history exists Hepatitis B Vaccines Completed 1996, 1996, 1996 HPV Vaccines Aged Out No longer eligi ble based on patient's age to complete this topic Meningococcal B Vaccine Aged Out No l onger eligible based on patient's age to complete this topic Meningococcal Vaccine Aged Out No maegan vaibhav eligible based on patient's age to complete this topic RSV Immunizations Under 20 Months Aged Out No longer eligible based on patient's age to complete this topic Insurance [employer] Care Teams Automobile Assembler Relationship Specialty Start Date End Date Ho Khoury MD [address] [place] [address] PCP - General FAMILY PRACTICE 11/30/22
--- OUTSIDE RECORDS SUMMARY | 2024-07-01 15:44 | XMS_ITS | Encounter Summary ---
Author Organization [facility] Address [address] [place] [address] Phone Care Team Providers Care Bottom Hoop Driver Name Role Phone Krystian Patel MD Primary Care Provider [phone] Encounter Details Date Type Department Care Team (Late st Contact Info) Description 06/24/2024 Telephone [facility] Orthopaedic Surgery [address] [facility] [address] [place] [address] [place] [address] iMly Lizama MD [address] [facility] [address] [address] Social History Tobacco Use Types Packs/Day Years Used Date Smoking Tobacco: Every Day Cigarettes Smokeless Tobacco: Never Alcohol Use Standard Drinks/Week Comments No 0 (1 standard drink = 0.6 oz pur e alcohol) AUDIT-C Answer Date Recorded Q1: How often do you have a drink containing alc ohol? Never 05/20/2023 Average Number of Drinks Not on file 024 Frequency of Binge Drinking Not on file 05/02 Hunger Vital Sign Answer Date Recorded Within the past 12 months, y ou worried that your food would run out before you got the money to buy more. Never true 05/20/19 24 Within the past 12 months, t he food you bought just didn't last and you didn't have money to get more. 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 She fears that the pt isgoing to get in trouble due to her decision making lately. She will send documents for Dr. Dl guardado out. clt documented in this encounter Plan of Treatment Not on file documented as of this encounter Visit Diagnoses Not on filedocumented in this encounter Care Teams Bottom Hoop Driver Relationship Specialty Start Date End Date Krystian Patel MD [address] [place] [id number] PCP - General Orthopedic Surgery 01/09/24 documented as of this encounter
--- OUTSIDE RECORDS SUMMARY | 2024-07-01 15:44 | XMS_ITS | Encounter Summary ---
Author Organization [facility] Address [address] [facility] [place] [address] Care Team Providers Care Manual Lathe Machinist Name Role Phone Ho Khoury MD Primary Care Provider [phone] Encounter Details Date Type Department Care Team (Late st Contact Info) Description 03/16/2024 Telephone [facility] - Dermatology [address] [facility], [facility] [place] [address] Henok Mitchell MD [address] [facility] [place] [address] Social History Tobacco Use Types Packs/Day Years Used Date Smoking Tobacco: Never Smokeless Tobacco: Never Alcohol Use Standard Drinks/Week Comments Never 0 (1 standard drink = 0.6 oz pur e alcohol) AUDIT-C Answer Date Recorded Q1: How often do you have a drink containing alc ohol? 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 Answer Date of Assessment Author No 04/07/2021 3:30 PM Griffin Ramirez RN * Is person blind or have serious difficulty seeing? Answer Date of Assessment Author No 04/07/2021 3:30 PM Griffin Ramirez RN * Does person have serious difficulty walking/climbing stairs? Answer Date of Assessment Author Yes 04/07/2021 3:30 PM Griffin Ramirez RN * Does person have difficulty dressing/bathing? Answer Date of Assessment Author Yes 04/07/2021 3:30 PM Griffin Ramirez RN * Does person have difficulty doing errands alone? Answer Date of Assessment Author Yes 04/07/2021 3:30 PM Griffin Ramirez RN documented as of this encounter Mental Status * Does person have difficulty concentrating/remembering/making decisions? Answer Entry Date Author Yes 04/07/2021 3:30 PM Griffin Ramirez RN documented in this encounter Miscellaneous Notes * Telephone Encounter - Adilson Stark - 03/16/2024 12:12 PM CST Pt mother calling sttd they sent test results thru my chart for accutane EAR FUEL ENRICHMENT TECHNICIAN documented in this encounter Plan of Treatment Upcoming Encounters Date Type Department Care Team (Late st Contact Info) Description 07/23/2024 1:40 PM CDT Office Visit [facility] - Dermatology [address] [place] [phone] Henok Mitchell MD [address] [place] [address] 08/27/2024 1:00 PM CDT Office Visit [facility] - Dermatology [address] [place] [phone] Henok Mitchell MD [address] [place] [phone] documented as of this encounter Goals Goal Patient Goal Type Associated Problems Recent Progress Patient-Stated? Author Mobility General No Carol Simms, RN Note: Expected end date: ongoing The goal is to maintain or improve your mobility at the optimum level for you. Interventions: documented as of this encounter Visit Diagnoses Not on filedocumented in this encounter Additional Health Concerns Infection Onset Date Last Indicated Resolved Time C Diff Hx Comment:Mar 2019 04/13/2019 04/13/2019 documented as of this encounter Care Teams Manual Lathe Machinist Relationship Specialty Start Date End Date Ho Khoury MD [address] [place] [address] PCP - General Family Medicine 08/28/22 documented as of this encounter
--- OUTSIDE RECORDS SUMMARY | 2024-07-01 15:44 | XMS_ITS | Referral Summary ---
Author Organization [facility] Address [address] [facility] [place] [place] [address] Care Team Providers Care Assistant Field Hockey Coach Name Role Phone Krystian Patel MD Primary Care Provider [phone] Encounters Date Type Department Care Team Description 06/24/2024 Telephone [facility] Orthopaedic Surgery [address] [place] [address] [address] [place] [address] [place] [address] Mily Lizama MD 06/16/2024 3:00 PM CDT Office Visit [facility] Orthopaedic Surgery [address] [place] [address] [address] [place] [address] [place] [address] Mily Lizama MD Spasticity (Primary Dx); Late effect of head trauma, cognitive deficits; PTSD (post-traumatic stress disorder); Left hemiparesis (HCC); 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) 06/15/2024 Telephone [facility] Orthopaedic Surgery [address] [place] [address] [address] [place] [address] [place] [address] Mily Lizama MD 04/30/2024 Orders Only [facility] Orthopaedic Surgery [address] [place] [address] [address] [place] [address] [place] [address] Mily Lizama MD Spasticity (Primary Dx) from Last 3 Months Allergies Active Allergy Reactions Criticality Noted Date Comments Bee Pollen Citalopram Other (See comments) Low 10/22/2022 Major depression and severe anxiety Diphtheria,Pertussis(Ac ell),Tetanus Pedi Vaccine Fever,Hives Medium Reaction: hives, high fever, Duloxetine Other (See comments) Reaction: major depression, manic attac, Escitalopram Other (See comments) Low 10/22/2022 Major depression, suicidal thoughts Pertussis Vaccines Tetanus Toxoid Medications FLUoxetine 10 mg capsule Take 8 tablet/capsule (80 mg total) by mouth daily 06/17/19 21 Active ondansetron ODT (ZOFRAN-ODT) 4 mg disintegrating tablet DISSOLVE 1 TABLET IN MOUTH EVERY 8 HOURS NEEDED FOR NAUSEA 06/14/19 21 Active prazosin (MINIPRESS) 5 mg capsule Take 1 mg by mouth nightly Active QUEtiapine (SEROquel) 50 mg tablet 1 tablet (50 mg total) nightly 05/08/19 23 Active busPIRone (BUSPAR) 30 mg tablet Take 1 tablet (30 mg total) by mouth 2 (two) times a day 04/09/19 23 Active hydrOXYzine (VISTARIL) 25 mg capsule 04/01/19 23 Active lamoTRIgine (LaMICtal) 25 mg tablet Take 5 tablets (125 mg total) by mouth daily 05/24/19 23 Active gabapentin (NEURONTIN) 300 mg capsule TAKE 2 CAPSULES BY MOUTH THREE TIMES DAILY 240 capsule 02/19/20 23 Active SUMAtriptan (IMITREX) 100 mg tablet TAKE ONE TABLET BY MOUTH ONCE NEEDED FOR MIGRAINE (MAY REPEAT ONCE AFTER 2 HOURS IF NEEDED IN A 24 HOUR PERIOD) FOR UP TO 9 DOSES 9 tablet 06/18/19 24 Active iron bisgly,ps-FA-B-C#1 2-succ 65 mg-65 mg -1,000 mcg (24) tablet Take 65 mg by mouth daily Active clonazePAM (KlonoPIN) 0.5 mg disintegrating tablet Take 1 tablet (0.5 mg total) by mouth 2 (two) times a day as needed for seizures Active omeprazole (PriLOSEC) 20 mg capsule Take 1 capsule (20 mg total) by mouth 2 (two) times a day Active buPROPion XL (WELLBUTRIN XL) 150 mg 24 hr tablet Take 1 tablet (150 mg total) by mouth daily Active doxycycline (ADOXA) 100 mg tablet Take 1 tablet (100 mg total) by mouth daily Active tretinoin (ALTRALIN) 0.05 % gel Apply 1 Application topically nightly Active clindamycin (CLEOCIN T) 1 % lotion Apply 1 Application topically 2 (two) times a day Active erenumab-aooe (Aimovig Autoinjector) 140 mg/mL auto-injector Inject 1 mL (140 mg total) under the skin every 30 (thirty) days 1 mL 3 02/14/20 24 Active Hospital, Clinic, or Other Facility Administered Medication Ordered Dose Route Frequency Start Date End Date Status abobotulinumtoxinA (DYSPORT) injection 1,000 UnitsIndications:Spasticity 1000 Units IM Once 06/15/2024 06/17/19 25 Ended abobotulinumtoxinA (DYSPORT) injection 1,000 Units 1000 Units IM Once 06/16/2024 06/17/2024 Ended Active Problems Problem Noted Date Diagnosed Date Spastic hemiplegia of left n ondominant side due to noncerebrovascular etiology 06/16/2024 Spasticity 05/29/2023 Polypharmacy 05/20/2023 Left hemiparesis 05/08/2022 PTSD (post-traumatic stress disorder) 09/13/2020 Chronic pain syndrome 09/13/2020 Generalized anxiety disorder 09/13/2020 Late effect of head trauma, cognitive deficits 0 09/13/2020 Depression 09/13/2020 Migraine without status migrainosus, not intract able 11/12/2012 Overview (06/08/2016): Migraine Immunizations Immunization Administration Dates Next Due Tdap 08/31/2017(Deferred: Patient Ref used) Social History Tobacco Use Types Packs/Day Years Used Date Smoking Tobacco: Every Day Cigarettes Smokeless Tobacco: Never Tobacco Cessation:Ready to Q uit: Not Asked; Counseling Given: Not Answered Alcohol Use Standard Drinks/Week Comments No 0 [...] on file Legal Sex Female 1:42 AM TOE LASTER Gender Identity Not on file Sexual Orientation Not on file Last Filed Vital Signs Vital Sign Reading Time Taken Comments Blood Pressure 126/88 06/16/2024 3:16 PM CDT Pulse 100 06/16/2024 3:16 PM CDT Temperature 36.4 C (97.6 F) 05/20/2023 1:26 PM CDT Respiratory Rate 18 03/17/2024 2:03 PM TOE LASTER Oxygen Saturation 100% 10/22/2022 2:50 PM CDT Inhaled Oxygen Concentration - - Weight 65.8 kg (145 lb) 06/16/2024 3:16 PM CDT Height 162.6 cm (5' 4 ) 03/17/2024 2:03 PM TOE LASTER Body Mass Index 24.89 03/17/2024 2:03 PM TOE LASTER Plan of Treatment Not on file Procedures Procedure Name Priority Date/Time Associated Diagnosis Comments TOXIN INJECTION Routine 06/16/2024 3:00 PM CDT Spasticity from Last 3 Months Results * Toxin Injection (06/16/2024 3:00 PM CDT) Narrative Mily Lizama MD - 06/16/2024 3:00 PM CDT Mily Lizama MD 06/16/2024 3:59 PM Toxin Injection Performed by: Mily Lizama MD Authorized by: Mily Lizama MD [place] Protocol: Consent Given by: Patient Procedure Details - Botox Injection: Procedure Details: Buy and Bill 1,000 Units abobotulinumtoxinA (DYSPORT) injection 500 units us Mily Lizama MD IN CLINIC/BEDSIDE ORDERABLE S Final Result from Last 3 Months Insurance [facility] OPEN ACCESS [facility] Care Teams Assistant Field Hockey Coach Relationship Specialty Start Date End Date Krystian Patel MD [address] [place] [address] PCP - General Orthopedic Surgery 01/09/24
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
--- OUTSIDE RECORDS SUMMARY | 2024-07-01 15:44 | XMS_ITS | Clinical Summary ---
Author Organization [facility] Address [address] [place] [address] Care Team Providers Care Registered Nurse Ambulatory Name Role Phone Krystian Patel MD Primary Care Provider [phone] Allergies Active Allergy Reactions Criticality Noted Date [...] not intract able 11/12/2012 Overview (06/08/2016): Migraine Encounters Date Type Department Care Team Description 06/24/2024 Telephone [facility] Orthopaedic Surgery [address] [place] [address] [address]th [place] [address] [place] [address] Mily Lizama MD 06/16/2024 3:00 PM CDT Office Visit [facility] Orthopaedic [address] [place] [address] [place] [address] Mily Lizama MD Spasticity (Primary Dx); Late effect of head trauma, cognitive deficits; PTSD (post-traumatic stress disorder); Left hemiparesis (HCC); 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) 06/15/2024 Telephone [facility]opa[facility] [address] [place] [address] [place] [address] Mily Lizama MD 04/30/2024 Orders Only [facility] Orthopaedic Surgery [address] [place] [address] [address]th [place] [address] [place] [address] Mily Lizama MD Spasticity (Primary Dx) from Last 3 Months Immunizations Immunization Administration Dates Next Due Tdap 08/31/2017(Deferred: Patient Ref used) Surgical History Surgery Date Site/Laterality Comments TONSILLECTOMY tonsillectomy TYMPANOSTOMY TUBE PLACEMENT ear tubes Medical History Medical History Date Comments Hx Other Medical migraine Anxiety TBI (traumatic brain injury) (HCC) Depression Left-sided weakness Excessive vomiting Migraine Vision loss Family History Medical History Relation Name Comments Hypertension Father Hypertension; Breast cancer Mother Cancer, breast ; Hypertension Mother Hypertension; Diabetes Other 1 Family history of Diabetes mellitus; Asthma Other 2 Family history of Asthma; Crohn's disease Other 3 Family histo ry of Crohn's disease; Relation Name Status Comments Father Mother Other 1 Other 2 Other 3 Social History Tobacco Use Types Packs/Day Years [...] on file Legal Sex Female 1:42 AM GAS PLUMBER Gender Identity Not on file Sexual Orientation Not on file Obstetrics History Last Filed Vital Signs Vital Sign Reading Time Taken Comments Blood Pressure 126/88 06/16/2024 3:16 PM CDT Pulse 100 06/16/2024 3:16 PM CDT Temperature 36.4 C (97.6 F) 05/20/2023 1:26 PM CDT Respiratory Rate 18 03/17/2024 2:03 PM GAS PLUMBER Oxygen Saturation 100% 10/22/2022 2:50 PM CDT Inhaled Oxygen Concentration - - Weight 65.8 kg (145 lb) 06/16/2024 3:16 PM CDT Height 162.6 cm (5' 4 ) 03/17/2024 2:03 PM GAS PLUMBER Body Mass Index 24.89 03/17/2024 2:03 PM GAS PLUMBER Plan of Treatment Health Maintenance Due Date Last Done Comments Cervical Cancer Screening 1996 Depression Screening 1996 Hepatitis C Screening 1996 Regular Well Visit/Exam 18-64 01/16/2014 Pneumococcal vaccine <65 (2 of 2 - PCV) 03/19/2020 03/19/2019 Influenza Vaccine (Season Ended) 2024 03/19/2019 DTaP/Tdap/Td Vaccine (7 - Td or Tdap) 03/05/2029 03/05/2019, 01/04/2001, 06/10/1997, Additional history exists Hepatitis B Screening Completed 1996 , 1996, 1996 Varicella Vaccines Completed 10/21/2006, 07/13/1997 HPV Vaccines Aged Out No longer eligi ble based on patient's age to complete this topic Procedures Procedure Name Priority Date/Time Associated Diagnosis Comments TOXIN INJECTION Routine 06/16/2024 3:00 PM CDT Spasticity from Last 3 Months Results * Toxin Injection (06/16/2024 3:00 PM CDT) Narrative Mily Lizama MD - 06/16/2024 3:00 PM CDT Mily Lizama MD 06/16/2024 3:59 PM Toxin Injection Performed by: Mily Lizama MD Authorized by: Mily Lizama MD Caroleen Protocol: Consent Given by: Patient Procedure Details - Botox Injection: Procedure Details: Buy and Bill 1,000 Units abobotulinumtoxinA (DYSPORT) injection 500 units Mily Lizama MD IN CLINIC/BEDSIDE ORDERABLE S Final Result from Last 3 Months Insurance [facility] OPEN ACCESS [facility] Care Teams Registered Nurse Ambulatory Relationship Specialty Start Date End Date Krystian Patel MD [address] [place] [address] PCP - General Orthopedic Surgery 01/09/24
--- OUTSIDE RECORDS SUMMARY | 2024-07-01 15:44 | XMS_ITS | Clinical Summary ---
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 Status on File) Date Activated Date Inactivated Comments 04/06/2021 5:58 PM 04/12/2021 4:23 PM * Full Code Date Activated Date Inactivated Comments 04/10/2019 4:43 PM 06/03/2019 12:40 PM Care Teams Construction Project Manager Relationship Specialty Start Date End Date Ho Khoury MD [address] [place] [phone] PCP - General Family Medicine 08/28/22
--- OUTSIDE RECORDS SUMMARY | 2024-07-01 15:45 | XMS_ITS | Encounter Summary ---
Author Organization [facility] Address [address] [facility] [place] [address] Care Team Providers Care Lean Manufacturing Engineer Name Role Phone Ho Khoury MD Primary Care Provider [phone] Encounter Details Date Type Department Care Team (Late st Contact Info) Description 05/26/2024 Telephone [facility] [address] [facility] [place] [address] Henok Mitchell MD [address] [facility] [place] [address] Social History Tobacco Use Types [...] on file 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 Answer Entry Date Author Yes 04/07/2021 3:30 PM Griffin Ramirez RN documented in this encounter Miscellaneous Notes * Telephone Encounter - Adilson Stark - 05/26/2024 2:13 PM CDT Pt calling to see if dr can send order for blood work to [facility] [place] documented in this encounter Plan of Treatment Upcoming Encounters Date Type Department Care Team (Late st Contact Info) Description 07/23/2024 1:40 PM CDT Office Visit [facility] Derm[facility] [address] [place] [phone] Henok Mitchell MD [address] [place] [address] 08/27/2024 1:00 PM CDT Office Visit [facility] Derm[facility] [address] [place] [phone] Henok Mitchell MD [address] [place] [address] documented as of this encounter Goals Goal [...] documented as of this encounter Care Teams Lean Manufacturing Engineer Relationship Specialty Start Date End Date Ho Khoury MD [address] [place] [address] PCP - General Family Medicine 08/28/22 documented as of this encounter
--- OUTSIDE RECORDS SUMMARY | 2024-07-01 15:45 | XMS_ITS | Encounter Summary ---
Author Organization [facility] Address [address] [facility] [place] [address] Care Team Providers Care Mascara Molder Name Role Phone Ho Khoury MD Primary Care Provider [phone] Reason for Visit * Reason Onset Date Comments Medication Issue 05/26/2024 Encounter Details Date Type Department Care Team (Late st Contact Info) Description 05/26/2024 Telephone [facility] - Centralized Scheduling [address] [place] [address] Henok Mitchell MD [address] [place] [address] Medication Issue Social History Tobacco Use Types Packs/Day Years [...] on file 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 Gender Identity Not on file Sexual Orientation [...] encounter Miscellaneous Notes * Telephone Encounter - Génesis Tavares - 05/26/2024 12:39 PM CDT Patient is requesting a order for Accutane, please assist documented in this encounter Plan of Treatment Upcoming Encounters Date Type Department Care Team (Late st Contact Info) Description 07/23/2024 1:40 PM CDT Office Visit [facility] Derm[facility] [address] [place] [phone] Henok Mitchell MD [address] [place] [address] 08/27/2024 1:00 PM CDT Office Visit [facility] [address] [place] [phone] Henok Mitchell MD [facility] [place] [address] documented as of this encounter Goals Goal Patient Goal Type Associated Problems Recent Progress Patient-Stated? Author Mobility General No Vinzon, Wayly B., RN Note: Expected end date: ongoing The goal is to maintain or improve your mobility at the optimum level for you. Interventions: documented as of this encounter Visit Diagnoses Not on filedocumented in this encounter Additional Health Concerns Infection Onset Date Last Indicated Resolved Time C Diff Hx Comment:Mar 2019 04/13/2019 04/13/2019 documented as of this encounter Care Teams Mascara Molder Relationship Specialty Start Date End Date Ho Khoury MD [address] [place] [phone] PCP - General Family Medicine 08/28/22 documented as of this encounter
--- OUTSIDE RECORDS SUMMARY | 2024-07-01 15:45 | XMS_ITS | Encounter Summary ---
Author Organization [facility] Address [address] [facility] [place] [address] Care Team Providers Care Trashman Name Role Phone Ho Khoury MD Primary Care Provider [phone] Encounter Details Date Type Department Care Team (Late st Contact Info) Description 06/24/2024 Results Follow-Up [facility] [address] [facility], [facility] [place] [address] Henok Mitchell MD [address] [facility] [place] [address] Social History Tobacco Use Types [...] on file 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 Answer Entry Date Author Yes 04/07/2021 3:30 PM Griffin Ramirez RN documented in this encounter Plan of Treatment Upcoming Encounters Date Type Department Care Team (Late st Contact Info) Description 07/23/2024 1:40 PM CDT Office Visit [facility] [address] [place] [address], [place] [address] Henok Mitchell MD [address] [place] [phone] 08/27/2024 1:00 PM CDT Office Visit [facility] - Dermatology [address] [place] [address] Henok Mitchell MD [address] [place] [phone] documented as of this encounter Goals Goal Patient Goal Type Associated Problems Recent Progress Patient-Stated? Author Mobility General No Carol Simms RN Note: Expected end date: ongoing The goal is to maintain or improve your mobility at the optimum level for you. Interventions: documented as of this encounter Visit Diagnoses Not on filedocumented in this encounter Additional Health Concerns Infection Onset Date Last Indicated Resolved Time C Diff Hx Comment:Mar 2019 04/13/2019 04/13/2019 documented as of this encounter Care Teams Trashman Relationship Specialty Start Date End Date Ho Khoury MD [address] [place] [address] PCP - General Family Medicine 08/28/22 documented as of this encounter
--- OUTSIDE RECORDS SUMMARY | 2024-07-01 15:45 | XMS_ITS | Continuity of Care Document ---
Author Organization [facility] Address [address] [place] [address] Phone Care Team Providers Care Net Programmer Name Role Phone Leeroy Root MD Unavailable Unavailable Allergies, Adverse Reactions, Alerts Substance Reaction Status Criticality No Known Allergies Active No Inform ation Procedures Procedure Date RADEX YVONNE COMPL MINIMUM 2 VIEWS 021 OFFICE/OUTPATIENT VISIT EST OFFICE/OUTPATIENT VISIT EST RADEX YVONNE COMPL MINIMUM 2 VIEWS 021 RADEX KNE 1/2 VIEWS OFFICE/OUTPATIENT VISIT EST OFFICE/OUTPATIENT VISIT EST RADEX CALCANEUS MINIMUM 2 VIEWS 020 POSTOP FOLLOW-UP VISIT POSTOP FOLLOW-UP VISIT TREAT HEEL FRACTURE Advance Directives Directive Yes / No Effective Date File Name No Information Encounters Encounter Description Practice Location Reason(s) For Visit Diagnoses Date Provider Providers Copied on Encounter [facility], [address] [facility], [place], [address], [place] tel:[phone] [facility] No Information Dk Umaña. [address], [place], [place], [address]. tel:[phone] Referring Provider: Will Judge i, [address], [place], [address]. tel:[phone] OFFICE/OUTPA TIENT VISIT EST [facility], [address], [place], [address], [place] tel:[phone] [facility] Left shoulder pain, unspecified chronicityPseu doparalysis 0- 1 Tomasz Solis. [address], [place], [address]. tel:[phone] OFFICE/OUTPA TIENT VISIT EST [facility], [address] [address], [place], [address], [place] tel:[phone] [facility] Contracture, right kneeLeft shoulder pain, unspecified chronicityLeft foot drop 5 1 Dinesh Mercado. [address], [place], [place], [id number]. tel:[phone] OFFICE/OUTPA TIENT VISIT EST [facility], [address] [facility] [address] [address], [place], [address], [place] tel:[phone] [facility] Contracture, right kneeClosed fracture of right tibial plateau, initial encounter 1 Blayne Batres. [address], [place], [place], [address]. tel:[phone] OFFICE/OUTPA TIENT VISIT EST [facility], [address] [facility] [address] [address], [place], [address], [place] tel:[phone] [facility] [place] Unspecified fracture of right calcaneus, subsequent encounter for fracture with routine healingContrac ture, right knee - 0 Blayne Batres. [address], [place], [place], [id number]. tel:[phone] [facility], [address] [address], [place], [address], [place] tel:[phone] [facility] Unspecified fracture of right calcaneus, subsequent encounter for fracture with routine healingContrac ture, right knee 4- 0 Blayne Batres. [address], [place], [place], [address]. tel:[phone] [facility], [address], [place], [address], [place] tel:[phone] [facility] Unspecified fracture of right calcaneus, subsequent encounter for fracture with routine healingElevate d blood-pressure reading, w/o diagnosis of htn 0 Blayne Batres. [address], [place], [place], [id number]. tel:[phone] [facility], [address], [place], [address], [place] tel:[phone] [facility] Closed displaced fracture of right calcaneus, unspecified portion of calcaneus, initial encounter 0 Blayne Batres. [address], [place], [place], [id number]. tel:[phone] Family History Family Member Type Diagnosis Age At Onset Mother Problem (finding) Mental illness Father Problem (finding) Mental illness Mother Problem (finding) hypertension Payers Payer name Insurance type Covered democrat ID Zee schmitz(s) [facility] Open Access E2 OT [id number] Social History Type Description Quantity Date Captured Comments Alcohol Use Details Unknown Caffeine Use Details Unknown Tobacco Use Status No Information Smoking Status No Information Sex Female Chief Complaint And Reason For Visit No Information Reason For Referral Reason For Referral No Information Plan Of Treatment Date Type Action Status Referral Ordered: MUSC TEST DONE W/N TEST COMP (EMG/NCS) LT arm ordered Referral Ordered: RADEX YVONNE COMPL MINIMUM 2 VIEWS LT ordered Referral Ordered: RADEX KNE 1/2 VIEWS RT knee ordered Referral Ordered: CT LXTR C-MATRL RT knee Appointment date/timeframe: 03/15/2020 ordered Referral Ordered: RADEX CALCANEUS MINIMUM 2 VIEWS RT ordered History Of Present Illness Encounter Date Complaint History Of Prese nt Illness No Information Functional Status Date Functional Assessmen t No Information Instructions Date Instruction Additional Godwinr jacquelin DISCUSSED SURGICAL OPTIONS Relat ed to Contracture, right knee Use as directed Related to Close d fracture of right tibial plateau, initial encounter Use as directed Related to Unspe cified fracture of right calcaneus, subsequent encounter for fracture with routine healing Use as directed Related to Unspe cified fracture of right calcaneus, subsequent encounter for fracture with routine healing Lifestyle education Related to E levated blood-pressure reading, without diagnosis of hypertension Report increased javier n, swelling, numbness or discoloration. Related to Unspecified fracture of right calcaneus, subsequent encounter for fracture with routine healing Assessments Type Assessment Date No Information Patient Care Teams Name Effective Dates (start - stop) Status Members No Information
--- OUTSIDE RECORDS SUMMARY | 2024-07-01 15:45 | XMS_ITS | Encounter Summary ---
Author Organization 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 Dermatology Resident * Telephone Encounter - Génesis Tavares - 05/18/2024 10:14 AM CDT Patient wanting to know how to go about getting the test needed for accutane. Please assist documented in this encounter Plan of Treatment Upcoming Encounters Date Type Department Care Team (Late st Contact Info) Description 07/23/2024 1:40 PM CDT Office Visit [facility] [address] [facility], [place] [address] Henok Mitchell MD [address] [facility] [address] 08/27/2024 1:00 PM CDT Office Visit [facility] [address] [facility] [place] [address] Henok Mitchell MD [address] [facility] [place] [address] documented as of this encounter Goals Goal [...] documented as of this encounter Care Teams Water Plant Maintenance Mechanic Relationship Specialty Start Date End Date Ho Khoury MD [address] [place] [address] PCP - General Family Medicine 08/28/22 documented as of this encounter
--- OUTSIDE RECORDS SUMMARY | 2024-07-01 15:45 | XMS_ITS | Encounter Summary ---
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 Problem with instructions on who to take. Rx was reading Take two capsules once daily. Take one capsule once daily . This has been corrected to: Take two capsules once daily. Henok Mitchell MD [facility] Dermatology Resident * Telephone Encounter - Александр Barger - 06/23/2024 4:01 PM CDT Pharmacy is requesting to clarify medication instructions ISOtretinoin (Zenatane) 30 MG capsule. CB# [phone] * Telephone Encounter - Nayana Gaspar - 05/26/2024 3:36 PM CDT Current Provider: Stephen Reason for Call: pt calling to let Dr. Mitchell know that she got her bloodwork done today at [facility] Patient Call Back Number: [phone] documented in this encounter Plan of Treatment Upcoming Encounters Date Type Department Care Team (Late st Contact Info) Description 07/23/2024 1:40 PM CDT Office Visit [facility] Derm[facility] [address] [place] [address], [place] [address] Henok Mitchell MD [address] [place] [address] 08/27/2024 1:00 PM CDT Office Visit [facility] - Dermatology [address] [place] [address], [place] [address] Henok Mitchell MD [address] [place] [address] documented as of this encounter Goals Goal [...] documented as of this encounter Care Teams Striker Out Relationship Specialty Start Date End Date Ho Khoury MD [address] [place] [phone] PCP - General Family Medicine 08/28/22 documented as of this encounter
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
== END 2024-07-01 14:47 | disposition home or self-care (01) ==
LOC: ANHIMG 14:48
PROVIDERS: PCP Nurse Practitioner Family; Visit Provider Nurse Practitioner Family
DX: Z12.31 Encounter for screening mammogram for malignant neoplasm of breast (principal); R92.8 Other abnormal and inconclusive findings on diagnostic imaging of breast; Z80.3 Family history of malignant neoplasm of breast
CPT/HCPCS: 77067

== ENCOUNTER 2024-07-20 12:42 | Outpatient (CLI) | payer OTHER, SELFPAY ==
--- NOTE | ~2024-07-20 | MMUS_ITS ---
EXAMINATION: MM diagnostic kurt RT w vikki, US breast RT limited HISTORY: Shayna history of breast cancer. Follow-up right breast asymmetry. TECHNIQUE: Additional 3-D tomosynthesis images of the right breast were performed and synthetic 2-D i mages were generated. CAD analysis was submitted and interpreted. High resolution Limited right breas t ultrasound was performed. COMPARISON: 07/01/2024 BREAST PARENCHYMAL COMPOSITION: Not dense: There are scattered areas of fibroglandular density. FINDINGS: MAMMOGRAPHIC FINDINGS: There are no suspicious masses, calcifications or architectural distortion in the right breast to sug gest malignancy. Right breast asymmetries compress with spot views. ULTRASOUND: Limited right breast and axilla ultrasound: Normal limited ultrasound of the right breast without dis crete mass. In the right axilla there is a normal-appearing 4 mm lymph node with fatty hilum. No sono graphic evidence for malignancy. IMPRESSION: 1. No evidence for malignancy in the right breast. 2. . Routine yearly screening mammogram beginning at age 40 and regular clinical breast examination a re recommended. BI-RADS Category 1: Negative Reviewed, dictated and finalized at location B. IMPRESSION: 1. No evidence for malignancy in the right breast. 2. . Routine yearly screening mammogram beginning at age 40 and regular clinica l breast examination are recommended. BI-RADS Category 1: Negative
--- OUTSIDE RECORDS SUMMARY | 2024-07-20 12:48 | XMS_ITS | Encounter Summary ---
Author Organization [facility] Address [address] [place] [address] Care Team Providers Care Bag Worker Name Role Phone Ho Khoury MD Primary Care Provider [phone] Encounter Details Date Type Department Care Team (Late st Contact Info) Description 03/16/2024 Telephone [facility] - Dermatology [address] [facility], [facility] [place] [address] Henok Mitchell MD [address] [facility] [place] [address] Social History Tobacco Use Types [...] on file Legal Sex Female 5:41 AM 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 SEASONAL Gender Identity Not on file Sexual Orientation [...] test results thru my chart for accutane HANDISER SEASONAL documented in this encounter Plan of Treatment Upcoming Encounters Date Type Department Care Team (Late st Contact Info) Description 07/23/2024 1:40 PM CDT Office Visit [facility] - Dermatology [address] [place] [phone] Henok Mitchell MD [address] [place] [address] 08/27/2024 1:00 PM CDT Office Visit [facility] - Dermatology [address] [place] [phone] Henok Mitchell MD [address] [place] [address] documented as of this encounter Goals Goal [...] documented as of this encounter Care Teams Bag Worker Relationship Specialty Start Date End Date Ho Khoury MD [address] [place] [address] PCP - General Family Medicine 08/28/22 documented as of this encounter
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
--- OUTSIDE RECORDS SUMMARY | 2024-07-20 12:49 | XMS_ITS | Encounter Summary ---
Author Organization [facility] Address [address] [place] [address] Care Team Providers Care [employer] Dean Name Role Phone Ho Khoury MD Primary Care Provider [phone] Reason for Visit * Reason Onset Date Comments Med Question 05/26/2024 Encounter Details Date Type Department Care Team (Late st Contact Info) Description 05/26/2024 Telephone [facility] - Centralized Scheduling [address] [place] [address] Henok Mitchell MD [address] [place] [address] Med Question Social History Tobacco [...] on file Legal Sex Female 5:41 AM RN ASSESSMENT Gender Identity Not on file Sexual Orientation [...] two capsules once daily. Henok Mitchell MD [facility] Dermatology Resident * Telephone Encounter - Александр Barger - 06/23/2024 4:01 PM CDT Pharmacy is requesting to clarify medication instructions ISOtretinoin (Zenatane) 30 MG capsule. CB# [phone] * Telephone Encounter - Nayana Gaspar - 05/26/2024 3:36 PM CDT Current Provider: Stephen Reason for Call: pt calling to let Dr. Mitchell know that she got her bloodwork done today at [facility] Patient Call Back Number: [phone] documented in this encounter Plan of Treatment Upcoming Encounters Date Type Department Care Team (Late st Contact Info) Description 07/23/2024 1:40 PM CDT Office Visit [facility] - Dermatology [address] [place] [address], [place] [address] Henok Mitchell MD [address] [place] [address] 08/27/2024 1:00 PM CDT Office Visit [facility] - Dermatology [address] [place] [address], [place] [address] Henok Mitchell MD [address] [place] [address] documented as of this encounter Goals Goal [...] documented as of this encounter Care Teams [employer] Dean Relationship Specialty Start Date End Date Ho Khoury MD [address] [place] [phone] PCP - General Family Medicine 08/28/22 documented as of this encounter
--- OUTSIDE RECORDS SUMMARY | 2024-07-20 12:49 | XMS_ITS | Clinical Summary ---
Author Organization [facility] Address [address] [place] [address] Phone Care Team Providers Care Food Safety Field Specialist Name Role Phone Unavailable Primary Care Provider [...] 0 Active Neomycin-Bacitra raven Zn-Polymyxin (NEOSPORIN) 3.5-400-5,000 cv-iyvg-zkiv Ointment in Packet Apply 1 Packet to [...] on file Legal Sex Female 2:57 PM YARDAGE CONTROL CLERK Gender Identity Not on file Sexual Orientation Not on file Last Filed Vital Signs Vital Sign Reading Time Taken Comments Blood Pressure 144/106 03/19/2019 5:00 PM YARDAGE CONTROL CLERK Pulse 27 03/19/2019 5:00 PM YARDAGE CONTROL CLERK Temperature 36.7 C (98.1 F) 03/19/2019 12:00 PM YARDAGE CONTROL CLERK Respiratory Rate 19 03/19/2019 3:00 PM YARDAGE CONTROL CLERK Oxygen Saturation 81% 03/19/2019 5:00 PM YARDAGE CONTROL CLERK Inhaled Oxygen Concentration - - Weight 49.1 kg (108 lb 3.2 oz) 03/19/2019 4:00 A M YARDAGE CONTROL CLERK Height 167.6 cm (5' 6 ) 03/13/2019 3:49 PM YARDAGE CONTROL CLERK Body Mass Index 17.46 03/13/2019 3:49 PM YARDAGE CONTROL CLERK Plan of Treatment Health Maintenance Due Date [...] this topic Medical Devices Implanted Type Area Chin Strap Maker Device Identifier Shelf Expiration Date Model / Serial / Lot Peg Endovive Sfty 20fr [id number] - [id number] Implanted:Qt y: 1 on 03/12/2019 by Randall Levin MD at [facility] Feeding Device [employer] 12/07/2020 [id number] / / [id number] Hemostatic Surgicel 4x8in 1950 - [id number] Implanted:Qt y: 1 on 03/05/2019 by Toro Rob MD at [facility] Hemostatic Right: Brain J&J- [employer] [id number] 07/01/[birth year]221951 / / [id number] Hemostatic Surgifoam Ux783x 1974 - [id number] Implanted:Qt y: 1 on 03/05/2019 by Toro Rob MD at [facility] Hemostatic Right: Brain J&J- [employer] [id number] 12/11/20221974 / / [id number] Hemostatic Surgiflo 8ml W/Thrombin 2994 - [id number] Implanted:Qt y: 1 on 03/05/2019 by Toro Rob MD at [facility] Hemostatic Right: Brain [employer]- [employer] [id number] 01/02/2020 2994 / / [id number] Hemostatic Surgiflo 8ml W/Thrombin 2994 - [id number] Implanted:Qt y: 1 on 03/05/2019 by Toro Rob MD at [facility] Hemostatic Right: Brain [employer] [id number] 01/02/2020 2994 / / [id number] Hemostatic Surgiflo 8ml W/Thrombin 2994 - [id number] Implanted:Qt y: 1 on 03/05/2019 by Toro Rob MD at [facility] Hemostatic Right: Brain [employer]- [employer] [id number] 01/02/2020 2994 / / [id number] Hemostatic Surgiflo 8ml W/Thrombin 2994 - [id number] Implanted:Qt y: 1 on 03/05/2019 by Toro Rob MD at [facility] Hemostatic Right: Brain J[employer]J- [employer] [id number] 01/02/2020 2994 / / [id number] Clx Calc Plate Standard Right Implanted:Qt y: 1 on 03/12/2019 by Medardo Cisneros Jr., MD at [facility] Plate Right: Foot CLX-002-SR / / Description:LOAD# EXPIRATION- 03-11-19 Screw Lck 3.5x24mm Jma-750-55-2 4 - [id number] Implanted:Qt y: 1 on 03/12/2019 by Medardo Cisneros Jr., MD at [facility] Screw Right: Foot [employer] RETINAL ANGIOGRAPHER-021-35 -24 / / Description:[id number] Screw Lck 3.5x24mm Hgu-157-81-2 4 - [id number] Implanted:Qt y: 1 on 03/12/2019 by Medardo Cisneros Jr., MD at [facility] Screw Right: Foot [employer] RETINAL ANGIOGRAPHER-021-35 -24 / / Description:[id number] Screw Lck 3.5x22mm Mrk-425-90-2 2 - [id number] Implanted:Qt y: 1 on 03/12/2019 by Medardo Cisneros Jr., MD at [facility] Screw Right: Foot [employer] RETINAL ANGIOGRAPHER-021-35 -22 / / Description:LOAD# [id number] EXPIRATION- 03-11-19 Duramatrix Onlay Plus 5x7in Implanted:Qt y: 1 on 03/05/2019 by Toro Rob MD at [facility] Right: Frontal Lobe YENNY- CMF sal BARRERA 01/01/2021 DMOP57 / / [id number] Description:ENTERED BY RN 01 [id number] 1X ADD REQ#[id number] Darco Headed Screw [id number] Implanted:Qt y: 1 on 03/12/2019 by Medardo Cisneros Jr., MD at [facility] Right: Foot [id number] / / Description:LOAD# [id number] 03-11-19 Locking Screw 4.2ewf35pw Implanted:Qt y: 2 on 03/12/2019 by Medardo Cisneros Jr., MD at [facility] Right: Foot RETINAL ANGIOGRAPHER-011-40 -30 / / Description:LOAD# [id number] EXPIRATION- 03-11-19 04.1zey13mv Non-Locking Screw Implanted:Qt y: 2 on 03/12/2019 by Medardo Cisneros Jr., MD at [facility] Right: Foot RETINAL ANGIOGRAPHER-011-40 -26 / / Description:LOAD# [id number] EXPIRATION- 03-11-19 Explanted Type Area Chin Strap Maker Device Identifier Shelf Expiration Date Model / Serial / Lot Wire K Trocar Blnt 1.1u483uz [id number] - [id number] Explanted:Qty: 1 on 03/12/2019 by Medardo Cisneros Jr., MD at [facility] Wire Right: Foot [employer] TECH INC [id number] / / Description:Not implanted Wire K Ortholoc 2.9j063uf [id number] - [id number] Explanted:Qty: 1 on 03/12/2019 at [facility] Wire Right: Foot MED [employer] [id number] / / Description:[id number] REQ#[id number] Insurance [facility] BLUE ACCESS CHOICE RX [employer] PLANS (INTERNAL) [facility] [address] [place] [id number] [place] [address] BLUE ACCESS CHOICE Advance Directives For more information, please contact: [phone] Documents on File Type Date Recorded 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
--- OUTSIDE RECORDS SUMMARY | 2024-07-20 12:49 | XMS_ITS | Encounter Summary ---
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 Gender Identity Not on file Sexual Orientation [...] for blood work to [facility] in [place] documented in this encounter Plan of Treatment Upcoming Encounters Date Type Department Care Team (Late st Contact Info) Description 07/23/2024 1:40 PM CDT Office Visit [facility] - Dermatology [address] [place] [phone] Henok Mitchell MD [address] [place] [address] 08/27/2024 1:00 PM CDT Office Visit [facility] - Dermatology [address] [place] [phone] Henok Mitchell MD [address] [place] [phone] documented as of this encounter Goals Goal [...] documented as of this encounter Care Teams Quenching Machine Operator Relationship Specialty Start Date End Date Ho Khoury MD [address] [place] [address] PCP - General Family Medicine 08/28/22 documented as of this encounter
--- OUTSIDE RECORDS SUMMARY | 2024-07-20 12:49 | XMS_ITS | Encounter Summary ---
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 Please assist documented in this encounter Plan of Treatment Upcoming Encounters Date Type Department Care Team (Late st Contact Info) Description 07/23/2024 1:40 PM CDT Office Visit [facility] - Dermatology [address] [facility] [place] [address] Henok Mitchell MD [address] [facility] [place] [address] 08/27/2024 1:00 PM CDT Office Visit [facility] - Dermatology [address] [facility] [place] [address] Henok Mitchell MD [address] [facility] [place] [address] documented as of this encounter Goals Goal [...] documented as of this encounter Care Teams Certified Pathology Assistant Relationship Specialty Start Date End Date Ho Khoury MD [address] [place] [phone] PCP - General Family Medicine 08/28/22 documented as of this encounter
--- OUTSIDE RECORDS SUMMARY | 2024-07-20 12:49 | XMS_ITS | Clinical Summary ---
Author Organization [facility] Address [address] [facility] [place] [address] Care Team Providers Care Retail Presentation Specialist Name Role Phone Krystian Patel MD Primary Care Provider [phone] Allergies Active Allergy Reactions Criticality Noted Date [...] days 1 mL 3 02/14/20 24 Active Active Problems Problem Noted Date Diagnosed [...] Type Department Care Team Description 06/24/2024 Telephone [facility] Orthopaedic Surgery [address] [facility] [address] [place] [address] [place] [id number] Mily Lizama MD 06/16/2024 3:00 PM CDT Office Visit 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 Orthopaedic Surgery [address] [place] [address] [place] [address] Mily Lizama MD 04/30/2024 Orders Only [facility] Orthopaedic Surgery [facility] [facility] [address] [place] [address] [place] [address] Mily Lizama MD Spasticity (Primary Dx) from Last 3 Months Immunizations Immunization Administration Dates Next Due Tdap 08/31/2017(Deferred: Patient Ref used) Surgical History Surgery Date Site/Laterality Comments TONSILLECTOMY tonsillectomy TYMPANOSTOMY TUBE PLACEMENT ear tubes Medical History Medical History Date Comments Hx Other Medical migraine Anxiety TBI (traumatic brain injury) ([facility]) Depression Left-sided weakness Excessive vomiting Migraine Vision [...] on file Legal Sex Female 1:42 AM 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 Gender Identity Not on file Sexual Orientation Not on file Obstetrics History Last Filed Vital Signs Vital Sign Reading Time Taken Comments Blood Pressure 126/88 06/16/2024 3:16 PM CDT Pulse 100 06/16/2024 3:16 PM CDT Temperature 36.4 C (97.6 F) 05/20/2023 1:26 PM CDT Respiratory Rate 18 03/17/2024 2:03 PM 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 Oxygen Saturation 100% 10/22/2022 2:50 PM CDT Inhaled Oxygen Concentration - - Weight 65.8 kg (145 lb) 06/16/2024 3:16 PM CDT Height 162.6 cm (5' 4 ) 03/17/2024 2:03 PM 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 Body Mass Index 24.89 03/17/2024 2:03 PM 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 Plan of Treatment Health Maintenance Due Date [...] Lizama MD Authorized by: Mily Lizama MD [place] Protocol: Consent Given by: Patient Procedure Details - Botox Injection: Procedure Details: Buy and Bill 1,000 Units abobotulinumtoxinA (DYSPORT) injection 500 units Mily Lizama MD IN CLINIC/BEDSIDE ORDERABLE S Final Result from Last 3 Months Insurance [facility] [employer] OPEN ACCESS [facility] * Guarantor: Erica Waterman Account Type Relation to Patient Date of Phone Billing Address Personal/Family Self 1995 [address] [place] [address] [facility] Care Teams Retail Presentation Specialist Relationship Specialty Start Date End Date Krystian Patel MD [address] [place] [address] PCP - General Orthopedic Surgery 01/09/24
--- OUTSIDE RECORDS SUMMARY | 2024-07-20 12:49 | XMS_ITS | Data Portability ---
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 Tibia [employer] 8153-55-065 / / Screw 5.5mm 70mm Ft Pa Lck Tib Canc Prox Explanted:Qty: 1 on 04/06/2021 by Krystian Patel MD at [facility] Right: Tibia [employer] 8153-55-070 / / Screw 4mm 65mm Ft Lck Slf-Tap Canc Ti Explanted:Qty: 1 on 04/06/2021 by Krystian Patel MD at [facility] Right: Tibia [employer] 8153-04-065 / / Screw 4mm 70mm P/T Nonlock Hex Drv Tib Explanted:Qty: 1 on 04/06/2021 by Krystian Patel MD at [facility] Right: Tibia [employer] 8155-40-070 / / Screw 4mm 75mm P/T Nlckg Hex Drv Tib Explanted:Qty: 1 on 04/06/2021 by Krystian Patel MD at [facility] Right: Tibia [employer] 8155-40-075 / / [id number] Guide Pin, 2.4mm X 9 Smooth Shaft Trocar Tip Explanted:Qty: 1 on 04/06/2021 by Krystian Patel MD at [facility] Right: Tibia [id number] 0 / / [id number] Cannulated Screw 4.5mm X 48mm Full Thread Explanted:Qty: 1 on 04/06/2021 by Krystian Patel MD at [facility] Right: Tibia [id number] / / Wire K 1.6mm 6in Hlf Bynt Pnt Ss Fx Explanted:Qty: 2 on 04/06/2021 at [facility] Right: Tibia [employer] [id number] / / Screw 4.5mm 24mm Ft Hex Drv Nlckg Fem Explanted:Qty: 1 on 04/06/2021 at [facility] Right: Tibia [employer] [id number] / / Screw 4.5mm 28mm Ft Hex Drv Nlckg Fem Explanted:Qty: 2 on 04/06/2021 at [facility] Right: Tibia [employer] [id number] / / Screw 4.5mm 28mm Ft Lck Fem Zheng Dist Explanted:Qty: 1 on 04/06/2021 by Krystian Patel MD at [facility] Right: Tibia [employer] 8150-45-528 / / [id number] Washer For 4.5mm Screw Implanted:Qty: 2 on 04/06/2021 by Krystian Patel MD at [facility] Explanted:Qty: 2 on 11/26/2023 at [facility] Right: Tibia [id number] / / Screw 4.5mm 32mm Ft Hex Drv Nlckg Fem Implanted:Qty: 2 on 04/06/2021 by Krystian Patel MD at [facility] Explanted:Qty: 2 on 11/26/2023 at [facility] Right: Tibia [employer] [id number] / [...] 2VW OR LESS Routine 04/29/2024 1:43 PM MEDICAL RECORDS TECHNICIAN Pain from implanted hardware, subsequent encounter Tibial plateau fracture, right, closed, with malunion, subsequent encounter HEPATITIS SCREEN ACUTE Routine 05/05/2019 3:38 PM MEDICAL RECORDS TECHNICIAN HIV-1 HIV-2 ANTIBODY + HIV P24 AG PANEL Routine 05/05/2019 3:38 PM MEDICAL RECORDS TECHNICIAN from Last 3 Months or Most Recently Relevant to Health Maintenance Results * HCG BETA BLOOD QUANTITATIVE (06/23/2024 10:08 AM CDT) Only the most recent of2 resultswithin the time period is included. [facility] Beta-hCG Total Quantitative <3 mIU/mL 06/23/2024 10:51 AM CDT [facility] Comment: HCG Numeric Result Interpretation: Non- Females: [...] Arenas MD LAB - CHEMISTRY ORDERABLES Gloria amaya Result [facility] [address] [place] [phone], [facility] [phone] * HEPATIC FUNCTION PANEL (06/23/2024 10:08 AM CDT) Only the most recent of2 resultswithin the time period is included. [facility] Protein Total 7.3 6.0 - 8.3 g/dL 025 10:51 AM CDT [facility] Albumin 4.0 3.4 - 5.0 g/dL 06/23/2024 10:51 AM [facility] Bilirubin Total 0.2 0.2 - 1.2 mg/dL 06/03 10:51 AM [facility] Bilirubin Conjugated 0.1 0.1 - 0.5 mg/dL 06/23/2024 10:51 AM [facility] Bilirubin Unconjugated 0.1 Unconjugated Bilirubin is a calculated value: Reference ranges have not been established. mg/dL 06/23/2024 10:51 AM [facility] Alkaline Phosphatase 90 40 - 150 U/L 06/23/2024 10:51 AM [facility] ALT 18 5 - 55 U/L 06/23/2024 10:51 AM [facility] AST 21 5 - 34 U/L 06/23/2024 10:51 AM [facility] Albumin/Globulin Ratio 1.2 1.1 - 2.3 06/23/2024 10:51 AM [facility] Blood BLOOD SPECIMEN / Unknown Lab Venipuncture / Unknown 06/23/2024 10:08 AM T 06/23/2024 10:13 AM T us Chacho Arenas MD LAB - CHEMISTRY ORDERABLES Gloria amaya Result [facility] [address] [place] [phone], [facility] [phone] * (ABNORMAL) LIPID PROFILE (06/23/2024 10:08 AM [facility]) Only the most recent of2 resultswithin the time period is included. Cholesterol Total 215(H) <200 mg/dL 06/23/2024 10:51 AM [facility] HDL 36(L) >40 mg/dL 06/23/2024 10:51 AM [facility] Comment: ATP III Classification of HDL Cholesterol: <40 mg/dL: Considered a major risk factor. >60 mg/dL: Considered a negative risk factor. LDL Calculated 135(H) <100 mg/dL 06/23/2024 10:51 AM [facility] Comment: ATP III Classification of LDL Cholesterol: <100 mg/dL: Optimal 100 - 129 mg/dL: Near Optimal/Above Optimal 130 - 159 mg/dL: Borderline High 160 - 189 mg/dL: High >190 mg/dL: Very High Triglycerides 218(H) <150 mg/dL 06/23/2024 10:51 AM CDT [facility] Comment: ATP III Classification of Triglycerides: <150 mg/dL: Normal 150 - 199 mg/dL: Borderline High 200 - 400 mg/dL: High >500 mg/dL: Very High Blood BLOOD SPECIMEN / Unknown Lab Venipuncture / Unknown 06/23/2024 10:08 AM CDT 06/23/2024 10:13 AM CDT us Chacho Arenas MD LAB - CHEMISTRY ORDERABLES Gloria amaya Result [facility] [address] [place] [phone], [facility] [phone] * XR Knee Right 2Vw or Less (04/29/2024 1:43 PM MEDICAL RECORDS TECHNICIAN) Anatomical Region Laterality Modality Lower Extremity Digital Radiogra phy 04/29/2024 1:59 PM MEDICAL RECORDS TECHNICIAN Impressions 04/29/2024 2:00 PM MEDICAL RECORDS TECHNICIAN IMPRESSION: Interval removal of screws from the tibia. > Interpreting Provider: Bharat Wright MD on 04/29/2024 2:00 PM Narrative 04/29/2024 2:00 PM MEDICAL RECORDS TECHNICIAN PROCEDURE: XR KNEE RIGHT 2VW OR LESS [...] HIV P24 AG PANEL (05/05/2019 3:38 PM MEDICAL RECORDS TECHNICIAN) Pathologist [facility] HIV1/2 Ab + P24 Ag Non Reactive Non Reactive 05/05/2019 5:33 PM MEDICAL RECORDS TECHNICIAN [facility] Blood BLOOD SPECIMEN / Unknown 05/05/2019 3:38 PM MEDICAL RECORDS TECHNICIAN 05/05/2019 4:46 PM MEDICAL RECORDS TECHNICIAN Narrative [facility] - 05/05/2019 5:33 PM MEDICAL RECORDS TECHNICIAN No Laboratory evidence of HIV infection. Nenita Reddy INSTALLMENT AGENT-RAVELER LAB - CHEMISTRY ORDERA BLES Final Result [facility] [address] [place] [address] * HEPATITIS SCREEN ACUTE (05/05/2019 3:38 PM MEDICAL RECORDS TECHNICIAN) HAV Antibody IgM Non Reactive Non Reactive 05/05/2019 5:32 PM MEDICAL RECORDS TECHNICIAN [facility] HBsAg Non Reactive Non Reactive 05/05/2019 5:32 PM MEDICAL RECORDS TECHNICIAN [facility] HBc Antibody IgM Non Reactive Non Reactive 05/05/2019 5:32 PM MEDICAL RECORDS TECHNICIAN [facility] HCV Antibody Screen Non Reactive Non Reactive 05/05/2019 5:32 PM MEDICAL RECORDS TECHNICIAN [facility] Blood BLOOD SPECIMEN / Unknown 05/05/2019 3:38 PM MEDICAL RECORDS TECHNICIAN 05/05/2019 4:46 PM MEDICAL RECORDS TECHNICIAN Narrative [facility] - 05/05/2019 5:32 PM MEDICAL RECORDS TECHNICIAN Non Reactive - Antibodies to Hepatitis C virus (HCV) were not detected, result does not exclude early acute HCV infection. us Nenita Reddy INSTALLMENT AGENT-RAVELER LAB - CHEMISTRY ORDERA BLES Final Result [facility] [address] [place] [address] from Last 3 Months or Most Recently Relevant to Health Maintenance Additional Health Concerns Infection Onset Date Last Indicated C Diff Hx Comment:Mar 2019 04/13/2019 04/13/2019 Insurance [facility] SELF PAY NO INSURANCE Member Subscriber Plan / Payer (Ef fective for All Dates)
--- OUTSIDE RECORDS SUMMARY | 2024-07-20 12:49 | XMS_ITS | Referral Summary ---
Author Organization [facility] Address [address] [facility] [place] [address] Care Team Providers Care Forge Operator Name Role Phone Krystian Patel MD Primary Care Provider [phone] Encounters Date Type Department Care Team Description 06/24/2024 Telephone [facility] Orthopaedic Surgery [address] [place] [address] [address]th [place] [address] [place] [address] Mily Lizama MD 06/16/2024 3:00 PM CDT Office Visit [facility] Orthopaedic Surgery [address] [place] [address] [address]th [place] [address] [place] [address] Mily Lizama MD Spasticity (Primary Dx); Late effect of head trauma, cognitive deficits; PTSD (post-traumatic stress disorder); Left hemiparesis (HCC); 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) 06/15/2024 Telephone [facility] Orthopaedic Surgery [address] [place] [address] [address]th [place] [address] [place] [address] Mily Lizama MD 04/30/2024 Orders Only [facility] Orthopaedic Surgery [address] [place] [address] [address] [place] [address] [place] [address] Mily Lizama MD Spasticity (Primary Dx) from [...] on file 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 Gender Identity Not on file Sexual Orientation Not on file Last Filed Vital Signs Vital Sign Reading Time Taken Comments Blood Pressure 126/88 06/16/2024 3:16 PM CDT Pulse 100 06/16/2024 3:16 PM CDT Temperature 36.4 C (97.6 F) 05/20/2023 1:26 PM CDT Respiratory Rate 18 03/17/2024 2:03 PM AIRCRAFT ELECTRONICS TECHNICAL OFFICER Oxygen Saturation 100% 10/22/2022 2:50 PM CDT Inhaled Oxygen Concentration - - Weight 65.8 kg (145 lb) 06/16/2024 3:16 PM CDT Height 162.6 cm (5' 4 ) 03/17/2024 2:03 PM AIRCRAFT ELECTRONICS TECHNICAL OFFICER Body Mass Index 24.89 03/17/2024 2:03 PM AIRCRAFT ELECTRONICS TECHNICAL OFFICER Plan of Treatment Not on file Procedures Procedure Name Priority Date/Time Associated Diagnosis Comments TOXIN INJECTION Routine 06/16/2024 3:00 PM CDT Spasticity from Last 3 Months Results * Toxin Injection (06/16/2024 3:00 PM CDT) Narrative Mily Lizama MD - 06/16/2024 3:00 PM CDT Mily Lizama MD 06/16/2024 3:59 PM Toxin Injection Performed by: Mily Lizama MD Authorized by: Mily Lizama MD [place] Protocol: Consent Given by: Patient Procedure Details - Botox Injection: Procedure Details: Buy and Bill 1,000 Units abobotulinumtoxinA (DYSPORT) injection 500 units Mily Lizama MD IN CLINIC/BEDSIDE ORDERABLE S Final Result from Last 3 Months Insurance [facility] OPEN ACCESS [facility] Care Teams Forge Operator Relationship Specialty Start Date End Date Krystian Patel MD [address] [place] [address] PCP - General Orthopedic Surgery 01/09/24
--- OUTSIDE RECORDS SUMMARY | 2024-07-20 12:49 | XMS_ITS | Continuity of Care Document ---
Author Organization [facility] Address [address] [place] [address] Phone Care Team Providers Care Heel Stiffener Name Role Phone Leeroy Root MD Unavailable [...] Providers Copied on Encounter [facility], [address] [facility], [place], [address], [place] tel:[phone] [facility] No Information Dk Umaña. [address], [place], [place], [address]. tel:[phone] Referring Provider: [place] Judge [place], [address], [place], [address]. tel:[phone] OFFICE/OUTPA TIENT VISIT EST [facility], [address], [place], [address], [place] tel:[phone] [facility] Left shoulder pain, unspecified chronicityPseu doparalysis 0- 1 Tomasz Solis. [address], [place], [address]. tel:[phone] OFFICE/OUTPA TIENT VISIT EST [facility], [address] [address], [place], [address], [place] tel:[phone] [facility] Contracture, right kneeLeft shoulder pain, unspecified chronicityLeft foot drop 5 1 Dinesh Mercado. [address], [place], [place], [address]. tel:[phone] OFFICE/OUTPA TIENT VISIT EST [facility], [address] [facility] [address] [address], [place], [address], [place] tel:[phone] [facility] Contracture, right kneeClosed fracture of right tibial plateau, initial encounter 1 Blayne Batres. [address], [place], [place], [id number]. tel:[phone] OFFICE/OUTPA TIENT VISIT EST [facility], [address] [facility] [address] [address], [place], [address], [place] tel:[phone] [facility] [place] Unspecified fracture of right calcaneus, subsequent encounter for fracture with routine healingContrac ture, right knee - 0 Blayne Batres. [address], [place], [place], [id number]. tel:[phone] [facility], [address] [address], [place], [address], [place] tel:[phone] [facility] Unspecified fracture of right calcaneus, subsequent encounter for fracture with routine healingContrac ture, right knee 4- 0 Blayne Batres. [address], [place], [place], [id number]. tel:[phone] [facility], [address], [place], [address], [place] tel:[phone] [facility] Unspecified fracture of right calcaneus, subsequent encounter for fracture with routine healingElevate d blood-pressure reading, w/o diagnosis of htn 0 Blayne Batres. [address], [place], [place], [id number]. tel:[phone] [facility], [address], [place], [address], [place] tel:[phone] [facility] Closed displaced fracture of right calcaneus, unspecified portion of calcaneus, initial encounter 0 Blayne Batres. [address], [place], [place], [id number]. tel:[phone] Family History Family Member Type Diagnosis Age At Onset Mother Problem (finding) Mental illness Father Problem (finding) Mental illness Mother Problem (finding) hypertension Payers Payer name Insurance type Covered alliance party ID Zee schmitz(s) Pol[employer] [facility] Open Access E2 OT [id number] Social History Type Description Quantity Date Captured [...]
--- OUTSIDE RECORDS SUMMARY | 2024-07-20 12:49 | XMS_ITS | Encounter Summary ---
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 Gender Identity Not on file Sexual Orientation [...] Office Visit [facility] - Dermatology [address] [place] [phone] Henok Mitchell MD [address] [place] [address] 08/27/2024 1:00 PM CDT Office Visit [facility] - Dermatology [address] [place] [phone] Henok Mitchell MD [facility] [place] [address] documented as of this encounter Goals Goal [...] documented as of this encounter Care Teams Informatics Analyst Relationship Specialty Start Date End Date Ho Khoury MD [address] [place] [phone] PCP - General Family Medicine 08/28/22 documented as of this encounter
--- OUTSIDE RECORDS SUMMARY | 2024-07-20 12:49 | XMS_ITS | Encounter Summary ---
Author Organization [facility] Address [address] [place] [address] Phone Care Team Providers Care Database Engineer Name Role Phone Krystian Patel MD Primary Care Provider [phone]- [phone] Encounter Details Date Type Department Care Team (Late st Contact Info) Description 06/24/2024 [address] [facility] Orthopaedic Surgery [address] [facility] 12th [place] [address] [place] [address] Mily Lizama MD [address] [facility] [address] [place] [address] Social History Tobacco Use Types Packs/Day Years [...] on file 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
--- OUTSIDE RECORDS SUMMARY | 2024-07-20 12:49 | XMS_ITS | Encounter Summary ---
Author Organization [facility] Address [address] [facility] [place] [address] Care Team Providers Care Wire Insulator Name Role Phone Ho Khoury MD Primary Care Provider [phone] -[phone] Encounter Details Date Type Department Care Team (Late st Contact Info) Description 06/24/2024 Results Follow-Up [facility] - Dermatology [address] [facility], [facility] [place] [address] Henok Mitchell MD [address] 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 Gender Identity Not on file Sexual Orientation [...] Office Visit [facility] - Dermatology [address] [place] [address], [place] [address] Henok Mitchell MD [address] [place] [phone] 08/27/2024 1:00 PM CDT Office Visit [facility] - Dermatology [address] [place] [phone] Henok Mitchell MD [address] [place] [address] documented as of this encounter Goals Goal [...] documented as of this encounter Care Teams Wire Insulator Relationship Specialty Start Date End Date Ho Khoury MD [address] [place] [address] PCP - General Family Medicine 08/28/22 documented as of this encounter
== END 2024-07-20 12:43 | disposition home or self-care (01) ==
LOC: ANHIMG 12:43
PROVIDERS: PCP Nurse Practitioner Family; Visit Provider Nurse Practitioner Family
DX: R92.8 Other abnormal and inconclusive findings on diagnostic imaging of breast (principal); Z85.3 Personal history of malignant neoplasm of breast
CPT/HCPCS: 76642; 77061; 77065; G0279

== ENCOUNTER 2024-10-26 11:03 | Outpatient (CLI) | payer OTHER, SELFPAY ==
--- NOTE | ~2024-10-26 | XR_ITS ---
[id number], XR femur RT min 2V 10/26/2024 11:40 (accession [id number]), 10/26/2024 11:39 (accession [id number]) Indication: Right knee pain Procedure: 2 views right knee and 2 views right femur Comparison: No prior studies for comparison. Findings: There is deformity of the lateral tibial plateau, consistent with prior healed fracture. The proximal tibias transfixed by sideplate and multiple screws. There is osteoarthritis of the knee. No significant joint effusion. No acute fracture identified. Right femur intact. Right hip is unremarkable. No soft tissue abnormality. Impression: 1: Healed right lateral tibial plateau transfixed by multiple screws with side plate. 2: Moderate osteoarthritis of the right knee. Reviewed, dictated and finalized at location O. Impression: 1: Healed right lateral tibial plateau transfixed by multiple screws with side plate. 2: Moderate osteoarthritis of the right knee. Impression: 1: Healed right lateral tibial plateau transfixed by multiple screws with side plate. 2: Moderate osteoarthritis of the right knee.
--- OUTSIDE RECORDS SUMMARY | 2024-10-26 11:49 | XMS_ITS | Clinical Summary ---
Author Organization [facility] [employer] Address [address] [facility] [place] [address] Care Team Providers Care Marketing Business Analyst Name Role Phone Ho Khoury MD Primary Care Provider [phone] Source Comments [facility],non-owned Affiliates and Associated Physician Practices is amultiple site organization consisting of ambulatory clinics and hospital sitesin [place], [place], [place] and [place]. This disclosure is being madepursuant to the Care Everywhere program and may not contain all information available regarding this patient. Last updated 17.[facility] [employer] Allergies Active Allergy Reactions Criticality Noted Date [...] Alwaysverify current medications with the patient. ondansetron, disintegrating , (ZOFRAN ODT) 4 MG tablet Take 1 (one) tablet by mouth every 6 hours as needed 04/12/19 21 Active Incontinence Supply Disposable (INCONTINENCE BRIEF LARGE) [facility] as directed 08/13/19 21 Active prazosin (MINIPRESS) 1 MG capsule Take 2 (two) capsules by mouth at bedtime Active gabapentin (NEURONTIN) 300 MG capsule Take 2 (two) capsules by mouth 3 times daily 270 capsule 3 05/30/19 22 Active SUMAtriptan (Imitrex) 50 MG tablet Take 1 (one) tablet by mouth as needed PRN 04/19/19 23 Active lamoTRIgine (LaMICtal) 100 MG tablet Take 125 mg by mouth once daily 08/07/19 23 Active FLUoxetine (PROzac) 40 MG capsule Take 2 (two) capsules by mouth once daily 08/07/19 23 Active busPIRone (Buspar) 30 MG tablet Take 1 (one) tablet by mouth 2 times daily 11/29/19 23 Active QUEtiapine XR 24hr (SEROquel XR) 150 MG tablet Take 2 (two) tablets by mouth at bedtime 11/29/19 23 Active cetirizine (ZyrTEC) 10 MG tablet Take 1 (one) tablet by mouth once daily 01/05/20 23 Active clonazePAM (KlonoPIN) 0.5 MG tablet Take 1 (one) tablet by mouth 2 times daily as needed 07/03/19 24 Active Aimovig 140 MG/ML auto injector pen INJECT 140 SUBCUTANEOUSLY ONCE EVERY MONTH Active buPROPion SR 12hr (Wellbutrin-SR ) 150 MG tablet Take 1 (one) tablet by mouth once daily Active mirtazapine (Remeron) 7.5 MG tablet Take 1 (one) tablet by mouth at bedtime 09/13/19 24 Active acetaminophen (Tylenol) 500 MG tablet Take 2 (two) tablets by mouth every 6 hours as needed for Fever or Pain Maximum allowable Acetaminophen amount = 4 Grams (4000 mg) / 24 hours. 60 tablet 11/26/19 24 Active oxyCODONE, immediate release, (Roxicodone) 5 MG tabletIndicati ons:Arthralgia of right knee Take 1 (one) tablet by mouth every 6 hours as needed for Pain 20 tablet 11/26/19 24 Active ibuprofen (Motrin) 800 MG tablet Take 1 (one) tablet by mouth every 6 hours as needed for Pain 30 tablet 11/26/19 24 Active ISOtretinoin (Zenatane) 30 MG capsuleIndicat ions:Cystic acne vulgaris Take 2 (two) capsules by mouth once daily 60 capsule 10/10/19 25 Active ISOtretinoin (Zenatane) 30 MG capsuleIndicat ions:Cystic acne vulgaris Take 2 (two) capsules by mouth once daily 60 capsule 09/04/19 25 025 Discontinu ed(Reorder ) amoxicillin (Amoxil) 500 MG capsuleIndicat ions:Inflamed epidermoid cyst of skin Take 1 (one) capsule by mouth 3 times daily for 10 days 30 capsule 10/07/19 25 025 Active Problems Problem Noted Date Diagnosed Date [...] Encounters Date Type Department Care Team Description 10/16/2024 Orders Only [facility] - Dermatology [address] [place] [address], [place] [phone] Henok Mitchell MD High risk medications (not anticoagulants) long-term use 10/09/2024 Orders Only [facility] - General Dermatology [address], [address] [place] [phone] Chris Abbott PA-C Cystic acne vulgaris 10/06/2024 10:30 AM CDT Video Visit [facility] - Dermatology [address] [facility] [place] [phone] Chris Abbott PA-C Cystic acne vulgaris ; High risk medications (not anticoagulants) long-term use; Cheilitis; Hypertriglyceridemi a; Inflamed epidermoid cyst of skin 09/25/2024 Orders Only [facility] - Dermatology [address] [place] [phone] Henok Mitchell MD High risk medications (not anticoagulants) long-term use 09/04/2024 Orders Only [facility] - Dermatology [address] [place] [phone] Henok Mitchell MD High risk medications (not anticoagulants) long-term use 09/03/2024 1:10 PM CDT Video Visit [facility] - Dermatology [address] [place] [phone] Milly Levy PA Cystic acne vulgaris ; Hypertriglyceridemi a; Cheilitis; High risk medications (not anticoagulants) long-term use 09/02/2024 Results Follow-Up [facility] - Dermatology [address] [place] [phone] Chris Abbott PA-C 09/01/2024 10:30 AM CDT Video Visit [facility] - Dermatology [address] [place] [phone] Chris Abbott PA-C ERRONEOUS ENCOUNTER--DISREGAR D 09/01/2024 Telephone [facility] - Centralized Scheduling [address] [place] [phone] Chris Abbott PA-C Appointment 08/14/2024 Orders Only [facility] - Dermatology [address] [place] [phone] Henok Mitchell MD High risk medications (not anticoagulants) long-term use 07/28/2024 9:50 AM CDT Office Visit [facility] - Dermatology [address] [place] [phone] Henok Mitchell MD Cystic acne vulgaris (Primary Dx); High risk medications (not anticoagulants) long-term use 07/28/2024 Results Follow-Up [facility] - Dermatology [address] [place] [phone] Henok Mitchell MD from Last 3 Months Family History Medical [...] on file Legal Sex Female 5:41 AM ALUMINUM WELDER Gender Identity Not on file Sexual Orientation Not on file Last Filed Vital Signs Vital Sign Reading Time Taken Comments Blood Pressure 114/81 04/29/2024 2:15 PM ALUMINUM WELDER Pulse 89 04/29/2024 2:15 PM ALUMINUM WELDER Temperature 36.8 C (98.3 F) 11/26/2023 9:06 AM CDT Respiratory Rate 20 04/29/2024 2:15 PM ALUMINUM WELDER Oxygen Saturation 96% 12/11/2023 11:09 AM CDT Inhaled Oxygen Concentration - - Weight 70.3 kg (155 lb) 11/26/2023 5:59 AM CDT Height 162.6 cm (5' 4) 11/26/2023 5:59 AM CDT Body Mass Index 26.61 11/26/2023 5:59 AM CDT Plan of Treatment Upcoming Encounters Date Type Department Care Team (Late st Contact Info) Description 11/10/2024 10:30 AM CDT Video Visit [facility] - Dermatology [address] [place] [phone] Chris Abbott, PANanyC [address] [facility] [address] [place] [phone] 12/15/2024 9:30 AM CDT Video Visit [facility] - Dermatology [address] [place] [phone] Chris Abbott PANanyC [address] [facility] [address] [place] [address] Health Maintenance Due Date Last Done Comments TD VACCINE 01/16/2003 DTAP/TDAP/TD VACCINES (1 - Tdap) 01/16/2015 HEPATITIS B VACCINE (1 of 3 - 19+ 3-dose series) 01/16/2015 PNEUMOCOCCAL VACCINE (1 of 2 - PCV) 01/16/2015 PAP SMEAR 01/16/2017 HPV VACCINE (1 - 3-dose SCDM series) 01/16/2023 COVID-19 VACCINE (1 - 2023-2 5 season) 2023 DEPRESSION SCREENING 03/04/2024 INFLUENZA VACCINE (#1) 2024 03/19/2019 ZOSTER VACCINE (1 of 2) [...] you. Interventions: Medical Devices Implanted Type Area Procurement Consultant Device Identifier Shelf Expiration Date Model / Serial / Lot Whole Tibial Plateau, Right Implanted:Qty: 1 on 04/06/2021 by Krystian Patel MD at [facility] Right: Tibia 04/08/2021 [id number] / [id number] / Screw 5.5mm 65mm Ft Pa Lck Tib Canc Prox Implanted:Qty: 1 on 04/06/2021 by Krystian Patel MD at [facility] Right: Tibia [employer] 8153-55-065 / / Screw 5.5mm 70mm Ft Pa Lck Tib Canc Prox Implanted:Qty: 1 on 04/06/2021 by Krystian Patel MD at [facility] Right: Tibia [employer] 8153-55-070 / / Screw 4mm 60mm Ft Pa Lck Slf-Tap Fem Tib Implanted:Qty: 1 on 04/06/2021 by Krystian Patel MD at [facility] Right: Tibia [employer] 8153-04-060 / / Screw 4mm 65mm Ft Lck Slf-Tap Canc Ti Implanted:Qty: 1 on 04/06/2021 by Krystian Patel MD at [facility] Right: Tibia [employer] 8153-04-065 / / Screw 4mm 70mm Ft Pa Lck Slf-Tap Fem Tib Implanted:Qty: 1 on 04/06/2021 by Krystian Patel MD at [facility] Right: Tibia [employer] 8153-04-070 / / Graft Bone Ac Cnxs Dbm 2.5ml Ptty Rtu - [id number] Implanted:Qty: 1 on 04/06/2021 by Krystian Patel MD at [facility] Right: Tibia [employer] 11/29/20213000-025 / [id number] / [id number] Cannulated Screw, 4.5mm X 44mm Full Thread Implanted:Qty: 1 on 04/06/2021 by Krystian Patel MD at [facility] Right: Tibia [id number] / / 46 Cannulated Screw, 4.5mm X 50mm Full Thread Implanted:Qty: 1 on 04/06/2021 by Krystian Patel MD at [facility] Right: Tibia 46 / / Polyax Tibial Plate- Right 2 Hole Implanted:Qty: 1 on 04/06/2021 by Krystian Patel MD at [facility] Right: Tibia [employer] 06/25/2028 [id number] / / [id number] Screw 4.5mm 28mm Ft Lck Fem Zheng Dist Implanted:Qty: 1 on 04/06/2021 by Krystian Patel MD at [facility] Right: Tibia [employer] [id number] / / Screw 5.5mm 55mm Ft Pa Lck Tib Canc Prox Implanted:Qty: 1 on 04/06/2021 by Krystian Patel MD at [facility] Right: Tibia [employer] 8153-55-055 / / Explanted Type Area Procurement Consultant Device Identifier Shelf Expiration Date Model / Serial / Lot Screw 5.5mm 65mm Ft Pa Lck Tib Canc Prox Explanted:Qty: 1 on 04/06/2021 by Krystian Patel MD at [facility] Right: Tibia [employer] 8153-55-065 / / Screw 5.5mm 70mm Ft Pa Lck Tib Canc Prox Explanted:Qty: 1 on 04/06/2021 by Krystian Patel MD at [facility] Right: Tibia [employer] 8153-55-070 / / Screw 4mm 65mm Ft Lck Slf-Tap Canc Ti Explanted:Qty: 1 on 04/06/2021 by Krystian Patel MD at [facility] Right: Tibia [employer] 8153-04-065 / / Screw 4mm 70mm P/T Nonlock Hex Drv Tib Explanted:Qty: 1 on 04/06/2021 by Krystian Patel MD at [facility] Right: Tibia [employer] 8155-40-070 / / Screw 4mm 75mm P/T Nlckg Hex Drv Tib Explanted:Qty: 1 on 04/06/2021 by Krystian Patel MD at [facility] Right: Tibia [employer] 8155-40-075 / / [id number] Guide Pin, 2.4mm X 9 Smooth Shaft Trocar Tip Explanted:Qty: 1 on 04/06/2021 by Krystian Patel MD at [facility] Right: Tibia [id number] 0 / / [id number] Cannulated Screw 4.5mm X 48mm Full Thread Explanted:Qty: 1 on 04/06/2021 by Krystian Patel MD at [facility] Right: Tibia [id number] / / Wire K 1.6mm 6in Hlf Bynt Pnt Ss Fx Explanted:Qty: 2 on 04/06/2021 at [facility] Right: Tibia [employer] [id number] / / Screw 4.5mm 24mm Ft Hex Drv Nlckg Fem Explanted:Qty: 1 on 04/06/2021 at [facility] Right: Tibia [employer] [id number] / / Screw 4.5mm 28mm Ft Hex Drv Nlckg Fem Explanted:Qty: 2 on 04/06/2021 at [facility] Right: Tibia [employer] [id number] / / Screw 4.5mm 28mm Ft Lck Fem Zheng Dist Explanted:Qty: 1 on 04/06/2021 by Krystian Patel MD at [facility] Right: Tibia [employer] 8150-45-528 / / [id number] Washer For 4.5mm Screw Implanted:Qty: 2 on 04/06/2021 by Krystian Patel MD at [facility] Explanted:Qty: 2 on 11/26/2023 at [facility] Right: Tibia [id number] / / Screw 4.5mm 32mm Ft Hex Drv Nlckg Fem Implanted:Qty: 2 on 04/06/2021 by Krystian Patel MD at [facility] Explanted:Qty: 2 on 11/26/2023 at [facility] Right: Tibia [employer] [id number] / / Procedures Procedure Name Priority Date/Time Associated Diagnosis Comments HEPATIC FUNCTION PANEL Routine 10/08/2024 10:18 AM CDT High risk medications (not anticoagulants) long-term use HCG BETA BLOOD QUANTITATIVE PEGGY 10/08/2024 10:18 AM CDT High risk medications (not anticoagulants) long-term use LIPID PROFILE Routine 10/08/2024 10:18 AM CDT High risk medications (not anticoagulants) long-term use HEPATIC FUNCTION PANEL Routine 09/01/2024 10:43 AM CDT High risk medications (not anticoagulants) long-term use HCG BETA BLOOD QUANTITATIVE PEGGY 09/01/2024 10:43 AM CDT High risk medications (not anticoagulants) long-term use LIPID PROFILE Routine 09/01/2024 10:43 AM CDT High risk medications (not anticoagulants) long-term use HEPATITIS SCREEN ACUTE Routine 05/05/2019 3:38 PM ALUMINUM WELDER HIV-1 HIV-2 ANTIBODY + HIV P24 AG PANEL Routine 05/05/2019 3:38 PM ALUMINUM WELDER from Last 3 Months or Most Recently Relevant to Health Maintenance Results * HCG BETA BLOOD QUANTITATIVE (10/08/2024 10:18 AM CDT) Only the most recent of2 resultswithin the time period is included. hCG Value <1 mIU/mL [facility] INSURANCE BILL Comment: Female (Non-) 0 - 5 (Postmenopausal) 0 - 8 Female () Weeks of Gestation 3 6 - 71 4 10 - 750 5 217 - 7138 6 158 - 20821 7 [phone] 8 [phone] -[phone] 9 43021 204159 10 48522 -158349 12 28082 -024825 14 77699 - 33812 15 96683 - 79003 16 8140 66276 17 7952 - 82474 18 0407 - 15732 Freya ECLIA methodology Blood BLOOD SPECIMEN / Unknown 10/08/2024 10:18 AM CDT 10/08/2024 Narrative [facility] INSURANCE BILL - 10/09/2024 8:12 AM CDT Performed at: [address] [place] [id number] Diamond Cleaver: Johnnie Jimenez PhD, Phone: [phone] Chacho Arenas MD LAB - CHEMISTRY ORDERABLES Gloria l Result Performing Organization Address [facility] de Phone Number [facility] INSURANCE BILL [address] [place] [address] * (ABNORMAL) HEPATIC FUNCTION PANEL (10/08/2024 10:18 AM CDT) Only the most recent of2 resultswithin the time period is included. Protein Total 7.1 6.0 - 8.5 g/dL [facility] INSURANCE BILL Albumin 4.3 4.0 - 5.0 g/dL [facility] INSURANCE BILL Bilirubin Total 0.2 0.0 - 1.2 mg/dL [facility] INSURANCE BILL Bilirubin Direct 0.09 0.00 - 0.40 mg/dL [facility] INSURANCE BILL Alkaline Phosphatase 103 44 - 121 IU/L [facility] INSURANCE BILL AST 30 0 - 40 IU/L [facility] INSURANCE BILL ALT 39(H) 0 - 32 IU/L [facility] INSURANCE BILL Blood BLOOD SPECIMEN / Unknown 10/08/2024 10:18 AM CDT 10/08/2024 Narrative [facility] INSURANCE BILL - 10/09/2024 1:10 PM CDT Performed at: [address] [place] [address] [id number] Diamond Cleaver: Johnnie Jimenez PhD, Phone: [phone] Chacho Arenas MD LAB - CHEMISTRY ORDERABLES Gloria l Result Performing Organization Address [facility] de Phone Number [facility] INSURANCE BILL [address] [place] [address] * (ABNORMAL) LIPID PROFILE (10/08/2024 10:18 AM CDT) Only the most recent of2 resultswithin the time period is included. Cholesterol 258(H) 100 - 199 mg/dL [facility] INSURANCE BILL Triglycerides 149 0 - 149 mg/dL [facility] INSURANCE BILL HDL Cholesterol 41 >39 mg/dL [facility] INSURANCE BILL VLDL Calculated 28 5 - 40 mg/dL [facility] INSURANCE BILL LDL Calculated 189(H) 0 - 99 mg/dL [facility] INSURANCE BILL Blood BLOOD SPECIMEN / Unknown 10/08/2024 10:18 AM CDT 10/08/2024 Narrative [facility] INSURANCE BILL - 10/09/2024 9:11 AM CDT [facility]formed at: [facility] [address] [place], [place] [id number] Diamond Cleaver: Johnnie Jimenez PhD, Phone: [phone] us Chacho Arenas MD LAB - CHEMISTRY ORDERABLES Gloria l Result [facility] INSURANCE BILL [address] [place] [address] * HIV-1 HIV-2 ANTIBODY + HIV P24 AG PANEL (05/05/2019 3:38 PM ALUMINUM WELDER) [facility] HIV1/2 Ab + P24 Ag Non Reactive Non Reactive 05/05/2019 5:33 PM ALUMINUM WELDER [facility] Blood BLOOD SPECIMEN / Unknown 05/05/2019 3:38 PM ALUMINUM WELDER 05/05/2019 4:46 PM ALUMINUM WELDER Narrative [facility] - 05/05/2019 5:33 PM ALUMINUM WELDER No Laboratory evidence of HIV infection. us Nenita Reddy TRACTOR MECHANIC HELPER-SUPERVISOR [employer] LAB - CHEMISTRY ORDERA BLES Final Result [facility] [address] [place] [address] * HEPATITIS SCREEN ACUTE (05/05/2019 3:38 PM ALUMINUM WELDER) Pathologist [facility] HAV Antibody IgM Non Reactive Non Reactive 05/05/2019 5:32 PM ALUMINUM WELDER [facility] HBsAg Non Reactive Non Reactive 05/05/2019 5:32 PM ALUMINUM WELDER [facility] HBc Antibody IgM Non Reactive Non Reactive 05/05/2019 5:32 PM ALUMINUM WELDER [facility] HCV Antibody Screen Non Reactive Non Reactive 05/05/2019 5:32 PM ALUMINUM WELDER [facility] Blood BLOOD SPECIMEN / Unknown 05/05/2019 3:38 PM ALUMINUM WELDER 05/05/2019 4:46 PM ALUMINUM WELDER Narrative [facility] - 05/05/2019 5:32 PM ALUMINUM WELDER Non Reactive - Antibodies to Hepatitis C virus (HCV) were not detected, result does not exclude early acute HCV infection. Nenita Reddy TRACTOR MECHANIC HELPER-SUPERVISOR [employer] LAB - CHEMISTRY ORDERA BLES Final Result [facility] [address] [place] [address] from Last 3 Months or Most Recently Relevant to Health Maintenance Additional Health Concerns Infection Onset Date Last Indicated C Diff Hx Comment:Mar 2019 04/13/2019 04/13/2019 Advance Directives * Full Code (Latest Code Status on File) Date Activated Date Inactivated Comments 04/06/2021 5:58 PM 04/12/2021 4:23 PM * Full Code Date Activated Date Inactivated Comments 04/10/2019 4:43 PM 06/03/2019 12:40 PM Care Teams Marketing Business Analyst Relationship Specialty Start Date End Date Ho Khoury MD [address] [place] [phone] PCP - General Family Medicine 08/28/22
--- OUTSIDE RECORDS SUMMARY | 2024-10-26 11:49 | XMS_ITS | Patient Health Record ---
Author Organization [facility] Address [address] [place] [address] Support Name Relationship Address Phone [place] Emergency Contact Unknown AMANDA [place] Guarantor Unknown [phone] Allergies Allergen (clinical drug ingredient) Drug/Non Drug Allergy documented on EMR Reaction Allergy Type Onset Date Status medroxyprogesterone Depo-Provera Contraceptive Unknown Drug Allergy Active Reason For Referral No Information Medications Medication SIG (Take, Route, Fr equency, Duration) Notes Start Date End Date Status baclofen 10 mg 1 tab(s) orally 2 times a day Active meloxicam 15 mg 1 tab(s) orally once a day; Duration: 30 day(s) Active traZODone 50 mg 1 tab(s) orally once a day (at bedtime) Active venlafaxine 25 mg 1 tab(s) orally 2 times a day Active Social History Tobacco Use: Social History Observation Description Date Details (start date - stop date) Current Smoker NA - NA Tobacco Use: Question Answer Notes Are you ready to quit? 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 Problem Traumatic brain injury with loss of consciousness (988917594) Traumatic brain injury with loss of consciousness, initial encounter (S06.9X9A) Active confirmed Plan Of Treatment Pending Test Test Name Order Date CT Scan : Head, without contrast CPT 704 50 12/10/2019 Insurance Providers Payer Name Payer Address Payer Phone Subscriber Number Group Number Insured Name Patient Relationship to Insured Coverage Start Date Coverage End Date Cigna [address] [address] [place] [id number] MIAMANDA Self - patient is the insured 1 MEDICAID [address] [place] [phone] [id number] SHMUEL AMANDA Self - patient is the insured 0 Medical (General) History Medical History History ICD Code Depression Anxiety Surgical History Surgery Date(Month/Year) Head Injury, Left Arm and Leg Fracture 2 020 Jaw Fracture 2009 Tonsillectomy 2010 Ear Tube Placement 2004
--- OUTSIDE RECORDS SUMMARY | 2024-10-26 11:49 | XMS_ITS | Clinical Summary ---
Author Organization [facility] Address [address] [place] [address] Care Team Providers Care Heel Nailing Machine Operator Name Role Phone Krystian Patel MD Primary Care Provider [phone]- [phone] Allergies Active Allergy Reactions Criticality Noted Date [...] Active erenumab-aooe (Aimovig Autoinjector) 140 mg/mL auto-injector INJECT 1 ML SUBCUTANEOUSLY ONCE EVERY MONTH 1 mL 3 09/01/19 25 Active Hospital, Clinic, or Other Facility Administered Medication Ordered Dose Route Frequency Start Date End Date Status abobotulinumtoxinA (DYSPORT) injection 1,000 UnitsIndications:Spas ticity 1000 Units IM Once 10/09/2024 09/28/2024 Discontinued abobotulinumtoxinA (DYSPORT) injection 1,000 UnitsIndications:Spas ticity 1000 Units IM Once 10/06/2024 10/06/2024 Ended Active Problems Problem Noted Date Diagnosed [...] Encounters Date Type Department Care Team Description 10/06/2024 11:00 AM CDT Office Visit [facility] [address] 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 12th [place] [address] [place] [address] Sherita Chen MD Spasticity (Primary Dx) 08/31/2024 Orders Only [facility] [address] [facility] 4th Floor [address] [place] [phone] Macy Shaver MD 08/06/2024 Telephone [facility] Orth[facility] 12th [place] [address] [place] [address] Mily Lizama MD from Last 3 Months Immunizations Immunization Administration [...] on file Legal Sex Female 1:42 AM LIBRARY AIDE Gender Identity Not on file Sexual Orientation Not on file Obstetrics History Last Filed Vital Signs Vital Sign Reading Time Taken Comments Blood Pressure 109/73 10/06/2024 11:12 AM CDT Pulse 103 10/06/2024 11:12 AM CDT Temperature 36.4 C (97.6 F) 05/20/2023 1:26 PM CDT Respiratory Rate 18 10/06/2024 11:12 AM CDT Oxygen Saturation 100% 10/22/2022 2:50 PM CDT Inhaled Oxygen Concentration - - Weight 66.7 kg (147 lb) 10/06/2024 11:12 AM CDT Height 162.6 cm (5' 4) 10/06/2024 11:12 AM CDT Body Mass Index 25.23 10/06/2024 11:12 AM CDT Plan of Treatment Health Maintenance Due Date Last Done Comments Cervical Cancer Screening 1996 Depression Screening 1996 Hepatitis C Screening 1996 Regular Well Visit/Exam 18-64 01/16/2014 Pneumococcal vaccine <65 (2 of 2 - PCV) 03/19/2020 03/19/2019 HPV Vaccines (1 - 3-dose SCD M series) 01/16/2023 Influenza Vaccine (#1) 2024 03/19/2019 DTaP/Tdap/Td Vaccine (7 - Td or Tdap) 03/05/2029 03/05/2019, 01/04/2001, 06/10/1997, Additional history exists Hepatitis B Screening Completed 1996 , 1996, 1996 Varicella Vaccines Completed 10/21/2006, 07/13/1997 Procedures Procedure Name Priority Date/Time Associated Diagnosis Comments BOTOX INJECTION Routine 10/06/2024 11:00 AM CDT Spasticity from Last 3 Months Results * Botox Injection (10/06/2024 11:00 AM CDT) Narrative Nena Humphrey Elpidio - 10/06/2024 11:00 AM CDT Nena Humphrey Elpidio 10/11/2024 3:45 PM Botox Injection Performed by: Sherita Chen MD Authorized by: Sherita Chen MD [place] Protocol: Consent Given by: Patient Site marked: the procedure site was marked Timeout: prior to procedure the correct patient, procedure, and site was verified Procedure Details - Botox Injection: Procedure Details: Buy and Bill Botox 1,000 Units abobotulinumtoxinA (DYSPORT) injection 500 units Sherita Chen MD IN CLINIC/BEDSIDE ORDERAB LES Final Result from Last 3 Months Insurance [facility] Care Teams Heel Nailing Machine Operator Relationship Specialty Start Date End Date Krystian Patel MD [address] [place] [address] PCP - General Orthopedic Surgery 01/09/24
--- OUTSIDE RECORDS SUMMARY | 2024-10-26 11:49 | XMS_ITS | Encounter Summary ---
Author Organization [facility] Address [address] [facility] [place] [address] Care Team Providers Care Forensic Accountant Name Role Phone Ho Khoury MD Primary Care Provider +1 -[phone] Encounter Details Date Type Department Care Team (Late st Contact Info) Description 10/16/2024 Orders Only [facility] D[facility] [address] [facility], [place] [address] Henok Mitchell MD [address] [facility] [place] [address] High risk medications (not anticoagulants) long-term use Social History Tobacco Use Types Packs/Day Years [...] on file 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 Author Mobility General No Carol Simms RN Note: Expected end date: ongoing The goal is to maintain or improve your mobility at the optimum level for you. Interventions: documented as of this encounter Visit Diagnoses Diagnosis High risk medications (not anticoagulants) long-term use Encounter for long-term (current) use of other medications documented in this encounter Additional Health Concerns Infection Onset Date Last Indicated Resolved Time C Diff Hx Comment:Mar 2019 04/13/2019 04/13/2019 documented as of this encounter Care Teams Forensic Accountant Relationship Specialty Start Date End Date Ho Khoury MD [address] [place] [address] PCP - General Family Medicine 08/28/22 documented as of this encounter
--- OUTSIDE RECORDS SUMMARY | 2024-10-26 11:49 | XMS_ITS | Encounter Summary ---
Author Organization [facility] Address [address] [facility] [place] [address] Care Team Providers Care Still Operator Gin Name Role Phone Ho Khoury MD Primary Care Provider [phone] -[phone] Encounter Details Date Type Department Care Team (Late st Contact Info) Description 09/02/2024 Results Follow-Up [facility] [address] [facility], [facility] [place] [address] Chris Abbott, PA-C [address] [facility] [address] [place] [address] Social History Tobacco Use Types Packs/Day Years [...] on file 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 Gender Identity Not on file Sexual Orientation [...] Video Visit [facility] [address] [place] [phone] Chris Abbott PA-C [address] [facility] [address] [place] [phone] 12/15/2024 9:30 AM CDT Video Visit [facility] [address] [place] [phone] Chris Abbott PA-C [address] [facility] [address] [place] [address] documented as of this encounter [...] documented as of this encounter Care Teams Still Operator Gin Relationship Specialty Start Date End Date Ho Khoury MD [address] [place] [address] PCP - General Family Medicine 08/28/22 documented as of this encounter
--- OUTSIDE RECORDS SUMMARY | 2024-10-26 11:49 | XMS_ITS | Encounter Summary ---
Author Organization [facility] Address [address] [facility] [place] [address] Care Team Providers Care Registered Land Surveyor Name Role Phone Ho Khoury MD Primary Care Provider +1 [phone] Encounter Details Date Type Department Care Team (Late st Contact Info) Description 03/16/2024 Telephone [facility] [address] [facility], [facility] [place] [address] Henok Mitchell MD [address] [facility] [place] [address] Social History Tobacco Use Types [...] on file 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 Gender Identity Not on file Sexual Orientation [...] test results thru my chart for accutane CTOR QUALITY ASSURANCE documented in this encounter Plan of Treatment Upcoming Encounters Date Type Department Care Team (Late st Contact Info) Description 11/10/2024 10:30 AM CDT Video Visit [facility] [address] [place] [phone] Chris Abbott PA-C [address] [facility] 200 [place] [address] 12/15/2024 9:30 AM CDT Video Visit [facility] [address] [place] [phone] Chris Abbott PA-C [address] [facility] 200 [place] [address] documented as of this encounter [...] documented as of this encounter Care Teams Registered Land Surveyor Relationship Specialty Start Date End Date Ho Khoury MD [address] [place] [address] PCP - General Family Medicine 08/28/22 documented as of this encounter
--- OUTSIDE RECORDS SUMMARY | 2024-10-26 11:49 | XMS_ITS | Encounter Summary ---
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 Please assist documented in this encounter Plan of Treatment Upcoming Encounters Date Type Department Care Team (Late st Contact Info) Description 11/10/2024 10:30 AM CDT Video Visit [facility] [address] [facility], [place] [phone] Chris Abbott, PA-C [address] [place] [address] 12/15/2024 9:30 AM CDT Video Visit [facility] [address] [facility], [place] [address] Chris Abbott, PA-C [address] [facility] 200 [place] [address] documented as of this encounter [...] documented as of this encounter Care Teams Mercury Purifier Relationship Specialty Start Date End Date Ho Khoury MD [address] [place] [phone] PCP - General Family Medicine 08/28/22 documented as of this encounter
--- OUTSIDE RECORDS SUMMARY | 2024-10-26 11:49 | XMS_ITS | Encounter Summary ---
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 Please assist documented in this encounter Plan of Treatment Upcoming Encounters Date Type Department Care Team (Late st Contact Info) Description 11/10/2024 10:30 AM CDT Video Visit [facility] Derm[facility] [address] [place] [phone] Chris Abbott PANanyC [address] [facility] 200 [place] [phone] 12/15/2024 9:30 AM CDT Video Visit [facility] [address] [place] [phone] Chris Abbott PANanyC [address] [place] [address] documented as of this encounter Goals Goal Patient Goal Type Associated Problems Recent Progress Patient-Stated? Author Mobility General Carol Bains, RN Note: Expected end date: ongoing The goal is to maintain or improve your mobility at the optimum level for you. Interventions: documented as of this encounter Visit Diagnoses Not on filedocumented in this encounter Additional Health Concerns Infection Onset Date Last Indicated Resolved Time C Diff Hx Comment:Mar 2019 04/13/2019 04/13/2019 documented as of this encounter Care Teams Dehydrator Tender Relationship Specialty Start Date End Date Ho Khoury MD [address] [place] [phone] PCP - General Family Medicine 08/28/22 documented as of this encounter
--- OUTSIDE RECORDS SUMMARY | 2024-10-26 11:49 | XMS_ITS | Encounter Summary ---
Author Organization [facility] Address [address] [facility] [place] [address] Care Team Providers Care Still Pump Operator Name Role Phone Ho Khoury MD Primary Care Provider +1 -[phone] Encounter Details Date Type Department Care Team (Late st Contact Info) Description 05/26/2024 Telephone [facility] [address] [facility], 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 Gender Identity Not on file Sexual Orientation [...] for blood work to [facility] in [place] documented in this encounter Plan of Treatment Upcoming Encounters Date Type Department Care Team (Late st Contact Info) Description 11/10/2024 10:30 AM CDT Video Visit [facility] Derm[facility] [address] [place] [phone] Chris Abbott PA-C [address] [facility] 200 [place] [address] 12/15/2024 9:30 AM CDT Video Visit [facility] [address] [place] [phone] Chris Abbott PA-C [address] [facility] 200 [place] [address] documented as of this encounter [...] as of this encounter Care Teams Still Pump Operator Relationship Specialty Start Date End Date Ho Khoury MD [address] [place] [address] PCP - General Family Medicine 08/28/22 documented as of this encounter
--- OUTSIDE RECORDS SUMMARY | 2024-10-26 11:49 | XMS_ITS | Encounter Summary ---
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 Gender Identity Not on file Sexual Orientation [...] Video Visit [facility]erm[facility] [address] [place] [phone] Chris Abbott PA-C [address] [facility] 200 [place] [address] 12/15/2024 9:30 AM CDT Video Visit [facility] [address] [place] [phone] Chris Abbott PA-C [address] [facility] [address] [place] [address] documented as of this encounter [...] documented as of this encounter Care Teams Coagulant Dipper Relationship Specialty Start Date End Date Ho Khoury MD [address] [place] [phone] PCP - General Family Medicine 08/28/22 documented as of this encounter
--- OUTSIDE RECORDS SUMMARY | 2024-10-26 11:49 | XMS_ITS | Clinical Summary ---
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 Gender Identity Not on file Sexual Orientation Not on file Last Filed Vital Signs Vital Sign Reading Time Taken Comments Blood Pressure 144/106 03/19/2019 5:00 PM MASTER COOK Pulse 27 03/19/2019 5:00 PM MASTER COOK Temperature 36.7 C (98.1 F) 03/19/2019 12:00 PM MASTER COOK Respiratory Rate 19 03/19/2019 3:00 PM MASTER COOK Oxygen Saturation 81% 03/19/2019 5:00 PM MASTER COOK Inhaled Oxygen Concentration - - Weight 49.1 kg (108 lb 3.2 oz) 03/19/2019 4:00 A M MASTER COOK Height 167.6 cm (5' 6) 03/13/2019 3:49 PM MASTER COOK Body Mass Index 17.46 03/13/2019 3:49 PM MASTER COOK Plan of Treatment Health Maintenance Due Date Last Done Comments HEPATITIS B VACCINES (1 of 3 - 19+ 3-dose series) 01/02 CERVICAL CANCER SCREENING 01/16/2017 HPV/Cotest (21-29) 01/16/2017 PAP SMEAR 01/16/2017 HPV VACCINES (1 - 3-dose SCDM series) 01/16/2023 INFLUENZA VACCINE (#1) 2024 03/19/2019 DTAP/TDAP/TD VACCINES (2 - Td or Tdap) 03/05/2029 Medical Devices Implanted Type Area Instructional Technology Coordinator Device Identifier Shelf Expiration Date Model / Serial / Lot Peg Endovive Sfty 20fr [id number] - [id number] Implanted:Qt y: 1 on 03/12/2019 by Randall Levin MD at [facility] Feeding Device [employer] 12/07/2020 [id number] / / [id number] Hemostatic Surgicel 4x8in 1950 - [id number] Implanted:Qt y: 1 on 03/05/2019 by Toro Rob MD at [facility] Hemostatic Right: Brain J&J- [employer] [id number] 07/01/20221951 / / [id number] Hemostatic Surgifoam Ne683o 1974 - [id number] Implanted:Qt y: 1 on 03/05/2019 by Toro Rob MD at [facility] Hemostatic Right: Brain J&J- [employer] [id number] 12/11/20221974 / / [id number] Hemostatic Surgiflo 8ml W/Thrombin 2994 - [id number] Implanted:Qt y: 1 on 03/05/2019 by Toro Rob MD at [facility] Hemostatic Right: Brain J[employer] [id number] 01/02/2020 2994 / / [id number] Hemostatic Surgiflo 8ml W/Thrombin 2994 - [id number] Implanted:Qt y: 1 on 03/05/2019 by Toro Rob MD at [facility] Hemostatic Right: Brain [employer] [id number] 01/02/2020 2994 / / [id number] Hemostatic Surgiflo 8ml W/Thrombin 2994 - [id number] Implanted:Qt y: 1 on 03/05/2019 by Toro Rob MD at [facility] Hemostatic Right: Brain [employer] [id number] 01/02/2020 2994 / / [id number] Hemostatic Surgiflo 8ml W/Thrombin 2994 - [id number] Implanted:Qt y: 1 on 03/05/2019 by Toro Rob MD at [facility] Hemostatic Right: Brain [employer] [id number] 01/02/2020 2994 / / [id number] Clx Calc Plate Standard Right Implanted:Qt y: 1 on 03/12/2019 by Medardo Cisneros Jr., MD at [facility] Plate Right: Foot CLX-002-SR / / Description:LOAD# EXPIRATION- 03-11-19 Screw Lck 3.5x24mm Eie-815-13-2 4 - [id number] Implanted:Qt y: 1 on 03/12/2019 by Medardo Cisneros Jr., MD at [facility] Screw Right: Foot MED [employer] INC TICKET WRITER-021-35 -24 / / Description:[id number] Screw Lck 3.5x24mm Kzp-867-99-2 4 - [id number] Implanted:Qt y: 1 on 03/12/2019 by Medardo Cisneros Jr., MD at [facility] Screw Right: Foot [employer] TICKET WRITER-021-35 -24 / / Description:[id number] Screw Lck 3.5x22mm Gbo-586-52-2 2 - [id number] Implanted:Qt y: 1 on 03/12/2019 by Medardo Cisneros Jr., MD at [facility] Screw Right: Foot [employer] TICKET WRITER-021-35 -22 / / Description:LOAD# [id number] EXPIRATION- 03-11-19 Duramatrix Onlay Plus 5x7in Implanted:Qt y: 1 on 03/05/2019 by Toro Rob MD at [facility] Right: Frontal Lobe YENNY- CMF sal BARRERA 01/01/2021 [id number] / / [id number] Description:ENTERED BY RN 01 [id number] 1X ADD REQ#[id number] Darco Headed Screw [id number] Implanted:Qt y: 1 on 03/12/2019 by Medardo Cisneros Jr., MD at [facility] Right: Foot [id number] / / Description:LOAD# [id number] 03-11-19 Locking Screw [id number] Implanted:Qt y: 2 on 03/12/2019 by Medardo Cisneros Jr., MD at [facility] Right: Foot TICKET WRITER-011-40 -30 / / Description:LOAD# [id number] EXPIRATION- 03-11-19 [id number] Non-Locking Screw Implanted:Qt y: 2 on 03/12/2019 by Medardo Cisneros Jr., MD at [facility] Right: Foot TICKET WRITER-011-40 -26 / / Description:LOAD# [id number] EXPIRATION- 03-11-19 Explanted Type Area Instructional Technology Coordinator Device Identifier Shelf Expiration Date Model / Serial / Lot Wire K Trocar Blnt [id number] - [id number] Explanted:Qty: 1 on 03/12/2019 by Medardo Cisneros Jr., MD at [facility] Wire Right: Foot [employer] TE[employer] [id number] / / Description:Not implanted Wire K Ortholoc [id number] - [id number] Explanted:Qty: 1 on 03/12/2019 at [facility] Wire Right: Foot [employer] [id number] / / Description:[id number] REQ#[id number] Insurance [facility] BLUE ACCESS CHOICE [employer] PLANS (INTERNAL) [facility] [address] [place], [place] [id number] [place] [address] BLUE ACCESS CHOICE Advance Directives For more information, please contact: [phone] Documents on File Type Date Recorded 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
--- OUTSIDE RECORDS SUMMARY | 2024-10-26 11:49 | XMS_ITS | Encounter Summary ---
Author Organization [facility] Address [address] [place] [address] Care Team Providers Care Leather Cleaner Name Role Phone Ho Khoury MD Primary Care Provider [phone] Reason for Visit * Reason Onset Date Comments Med Question 05/26/2024 Encounter Details Date Type Department Care Team (Late st Contact Info) Description 05/26/2024 Telephone [facility] - Centralized Scheduling [address] [place] [address] Henok Mitchell MD [address] [place] [address] Med Question Social History Tobacco [...] on file Legal Sex Female 5:41 AM [employer] Gender Identity Not on file Sexual Orientation [...] capsules once daily. Take one capsule once daily. This has been corrected to: Take two capsules once daily. Henok Mitchell MD [facility] Dermatology Resident * Telephone Encounter - Александр Barger - 06/23/2024 4:01 PM CDT Pharmacy is requesting to clarify medication instructions ISOtretinoin (Zenatane) 30 MG capsule. CB# [phone] * Telephone Encounter - Nayana Gaspar - 05/26/2024 3:36 PM CDT Current Provider: Stephen Reason for Call: pt calling to let Dr. Mitchell know that she got her bloodwork done today at [facility] Patient Call Back Number: [phone] documented in this encounter Plan of Treatment Upcoming Encounters Date Type Department Care Team (Late st Contact Info) Description 11/10/2024 10:30 AM CDT Video Visit [facility] - Dermatology [address] [place] [address], [place] [phone] Chris Abbott PA-C [id number] [place] [address] 12/15/2024 9:30 AM CDT Video Visit [facility] - Dermatology [address] [place] [address], [place] [phone] Chris Abbott PA-C [id number] [place] [address] documented as of this encounter [...] documented as of this encounter Care Teams Leather Cleaner Relationship Specialty Start Date End Date Ho Khoury MD [address] [place] [id number] PCP - General Family Medicine 08/28/22 documented as of this encounter
== END 2024-10-26 11:04 | disposition home or self-care (01) ==
PROVIDERS: PCP Nurse Practitioner Family; Visit Provider Nurse Practitioner Family
DX: M17.11 Unilateral primary osteoarthritis, right knee (principal); Z87.81 Personal history of (healed) traumatic fracture; Z96.698 Presence of other orthopedic joint implants
CPT/HCPCS: 73552; 73560